=== PATIENT | male | born 1925 | race Caucasian/White ===

== ENCOUNTER 2017-06-02 11:30 | Inpatient (IN) | payer MEDICARE, OTHER ==
[~2017-06-02] VITALS: Ht 170.2 cm; Wt 59.0 kg
[2017-06-02 12:53] VITALS: BP 145/67; PULSE 81; TEMP 97.5; O2SAT 100
[2017-06-02 13:22] LABS: AUTOMATED NEUTROPHIL # 2.9 TH/MM3 (1.8-7.7); BASOPHIL % 0.2 % (0.0-2.0); EOSINOPHIL % 0.6 % (0.0-4.0); HEMATOCRIT 32.6 % (39.0-51.0); LYMPHOCYTE # 0.5 TH/MM3 (1.0-4.8); MEAN CELL VOLUME 86.9 FL (80.0-100.0); MEAN CORPUSCULAR HEMOGLOBIN 28.4 PG (27.0-34.0); MEAN CORPUSCULAR HGB CONC 32.6 % (32.0-36.0); NEUT % 69.2 % (16.0-70.0); RED BLOOD COUNT 3.74 MIL/MM3 (4.50-5.90); WHITE BLOOD COUNT 4.2 TH/MM3 (4.0-11.0)
[2017-06-02 13:35] LABS: HEMO FLAGS AUTO DIFF
[2017-06-02 14:13] LABS: ANION GAP 10 MEQ/L (5-15); AST (GOT) 16 U/L (15-37); BLOOD UREA NITROGEN 33 MG/DL (7-18); CHLORIDE 111 MEQ/L (98-107); GLOMERULAR FILTRATION RATE 32 ML/MIN (>89); POTASSIUM 3.9 MEQ/L (3.5-5.1); SODIUM (NA) 141 MEQ/L (136-145)
[2017-06-02 14:18] LABS: ALKALINE PHOSPHATASE 75 U/L (45-117); ALT (GPT) 15 U/L (12-78); TOTAL BILIRUBIN ADULT 0.9 MG/DL (0.2-1.0)
[2017-06-02 14:23] LABS: BANDS 11 % (0-6); EOSINOPHILS 1 % (0-4); METAMYELOCYTES 4 % (0-1); MYELOCYTES 3 % (0-0); NEUTROPHIL # MANUAL DIFF 3.7 TH/MM3 (1.8-7.7); POLYS (SEG NEUTROPHILS) 67 % (16-70); PROMYELOCYTES 2 % (0-0); WBC DIFF SAMPLE 100
[2017-06-02 14:24] LABS: KERATOCYTES 2+ (NORMAL)
[2017-06-02 14:25] LABS: OVALOCYTES 1+ (NORMAL)
[2017-06-02 14:27] LABS: PLATELET ESTIMATE SMEAR LOW (NORMAL); PLATELET MORPHOLOGY ENLARGED (NORMAL); SCAN/DIFF FINAL DIFF MANUAL
--- NOTE | 2017-06-02 15:07 | PD ---
HPI Chief Complaint: Psychiatric Symptoms Time Seen by Provider: 12:19 Travel History International Travel<30 days: No Contact w/Intl Traveler<30days: No History of Present Illness HPI The patient is 89 years old. He arrives in the Navarro Act. He has a history of senile dementia. The police went to his house because he has been too much for his to handle. He has been driving which is unsafe. He became agitated when he was forcibly removed from his house and brought to the hospital. For that reason he was Navarro acted. Here he has no medical complaints. [facility] Social History Alcohol Use: No Tobacco Use: No Substance Use: No Allergies-Medications (Allergen,Severity, Reaction): Coded Allergies: No Known Allergies (Verified Allergy, Unknown, 09/04/05) Reported Meds & Prescriptions Reported Meds & Active Scripts Active Review of Systems Except as stated in HPI: all other systems reviewed are Neg General / Constitutional: No: Fever Physical Exam Narrative GENERAL: Well-nourished well-developed 89-year-old male no acute distress SKIN: Warm and dry. HEAD: Atraumatic. Normocephalic. EYES: Pupils equal and round. No scleral icterus. No injection or drainage. ENT: No nasal bleeding or discharge. Mucous membranes pink and moist. NECK: Trachea midline. No JVD. CARDIOVASCULAR: Regular rate and rhythm. RESPIRATORY: No accessory muscle use. Clear to auscultation. Breath sounds equal bilaterally. GASTROINTESTINAL: Abdomen soft, non-tender, nondistended. Hepatic and splenic margins not palpable. MUSCULOSKELETAL: Extremities without clubbing, cyanosis, or edema. No obvious deformities. NEUROLOGICAL: Awake and alert. No obvious cranial nerve deficits. Motor grossly within normal limits. Five out of 5 muscle strength in the arms and legs. Normal speech. PSYCHIATRIC: Appropriate mood and affect; insight and judgment normal. Data Data Last Documented VS Vital Signs Date Time Temp Pulse Resp B/P (MAP) Pulse Ox O2 Delivery O2 Flow Rate FiO2 06/02/17 14:29 82 18 06/02/17 12:53 97.5 145/67 (93) 100 Vital Signs Date Time Temp Pulse Resp B/P (MAP) Pulse Ox O2 Delivery O2 Flow Rate FiO2 06/02/17 14:29 82 18 06/02/17 12:53 97.5 81 145/67 (93) 100 Orders Orders Complete Blood Count With Diff (10/23/17 13:01) Comprehensive Metabolic Panel (06/02/17 13:01) Psych Screen (06/02/17 13:01) Drug Screen, Random Urine (06/02/17 13:01) Labs Laboratory Tests Test 06/02/17 13:00 06/02/17 13:30 White Blood Count 4.2 TH/MM3 Red Blood Count 3.74 MIL/MM3 Hemoglobin 10.6 GM/DL Hematocrit 32.6 % Mean Corpuscular Volume 86.9 FL Mean Corpuscular Hemoglobin 28.4 PG Mean Corpuscular Hemoglobin Concent 32.6 % Red Cell Distribution Width 16.0 % Platelet Count TH/MM3 Mean Platelet Volume 10.1 FL Neutrophils (%) (Auto) 69.2 % Lymphocytes (%) (Auto) 13.0 % Monocytes (%) (Auto) 17.0 % Eosinophils (%) (Auto) 0.6 % Basophils (%) (Auto) 0.2 % Neutrophils # (Auto) 2.9 TH/MM3 Lymphocytes # (Auto) 0.5 TH/MM3 Monocytes # (Auto) 0.7 TH/MM3 Eosinophils # (Auto) 0.0 TH/MM3 Basophils # (Auto) 0.0 TH/MM3 CBC Comment AUTO DIFF Differential Total Cells Counted 100 Neutrophils % (Manual) 67 % Band Neutrophils % 11 % Lymphocytes % 10 % Monocytes % 2 % Eosinophils % 1 % Neutrophils # (Manual) 3.7 TH/MM3 Metamyelocytes 4 % Myelocytes 3 % Promyelocytes 2 % Differential Comment FINAL DIFF MANUAL Platelet Estimate LOW Platelet Morphology Comment ENLARGED Ovalocytes 1+ Keratocytes 2+ Blood Urea Nitrogen 33 MG/DL Creatinine 1.97 MG/DL Random Glucose 114 MG/DL Total Protein 7.3 GM/DL Albumin 3.6 GM/DL Calcium Level 9.2 MG/DL Alkaline Phosphatase 75 U/L Aspartate Amino Transf (AST/SGOT) 16 U/L Alanine Aminotransferase (ALT/SGPT) 15 U/L Total Bilirubin 0.9 MG/DL Sodium Level 141 MEQ/L Potassium Level 3.9 MEQ/L Chloride Level 111 MEQ/L Carbon Dioxide Level 20.0 MEQ/L Anion Gap 10 MEQ/L Estimat Glomerular Filtration Rate 32 ML/MIN Urine Opiates Screen NEG Urine Barbiturates Screen NEG Urine Amphetamines Screen NEG Urine Benzodiazepines Screen NEG Urine Cocaine Screen NEG Urine Cannabinoids Screen NEG MDM Medical Decision Making Medical Screen Exam Complete: Yes Emergency Medical Condition: Yes Medical Record Reviewed: Yes Differential Diagnosis Altered mental status/psychosis due to infection/environmental exposure/ metabolic abnormality, polypharmacy, alcohol abuse/intoxication, illicit or prescribed drug abuse, malingering/secondary gain, non-organic psychiatric disease Narrative Course CBC & BMP Diagram 06/02/17 13:00 Total Protein 7.3, Albumin 3.6, Calcium Level 9.2, Alkaline Phosphatase 75, Aspartate Amino Transf (AST/SGOT) 16, Alanine Aminotransferase (ALT/SGPT) 15, Total Bilirubin 0.9 Patient is medically clear for evaluation by psychiatry service. d/w Dr Andrse who advises evaluation by psychiatry as he has been somewhat difficult at times at home and has been driving despite instructions otherwise. Diagnosis Primary Impression: Medical clearance for psychiatric admission Amado Lau MD Jun 02, 2017 15:07
[2017-06-02 16:25] VITALS: BP 169/72; PULSE 61; TEMP 98.1; O2SAT 100
[2017-06-02] MEDS ORDERED: MAGNESIUM HYDROXIDE SUSP 30 ML CUP PO PRN (19:30)
[2017-06-02] MEDS ORDERED: ALUMINUM/MAGNESIUM/SIMETH 30 ML CUP PO PRN (19:30)
[2017-06-02] MEDS ORDERED: ACETAMINOPHEN 325 MG TAB PO PRN (19:30)
[2017-06-02] MEDS ORDERED: LORazepam 2 MG/ML VIAL - age > 65 yrs IM PRN (19:30)
[2017-06-02] MEDS ORDERED: LORazepam 0.5 MG TAB age > 65 yrs PO PRN (19:30)
[2017-06-02 19:40] VITALS: BP 180/75; PULSE 85; RESP 16; TEMP 97.6; O2SAT 100
[2017-06-02 22:30] VITALS: BP 182/75; PULSE 67
[2017-06-02] MEDS: cloNIDine HCL 0.1 MG TAB PO PRN (22:46)
[2017-06-03 00:45] VITALS: BP 98/53; PULSE 63; RESP 17
[2017-06-03 06:29] VITALS: BP 139/64; RESP 17; TEMP 97.2; O2SAT 100
[2017-06-03 11:37] LABS: ANION GAP 7 MEQ/L (5-15); BICARBONATE 23.8 MEQ/L (21.0-32.0); BLOOD UREA NITROGEN 33 MG/DL (7-18); CHLORIDE 110 MEQ/L (98-107); GLOMERULAR FILTRATION RATE 36 ML/MIN (>89); POTASSIUM 4.5 MEQ/L (3.5-5.1); SODIUM (NA) 141 MEQ/L (136-145)
[2017-06-03 11:41] LABS: HDL CHOLESTEROL 83.7 MG/DL (40.0-60.0); LDL CHOLESTEROL 49 MG/DL (0-99)
[2017-06-03] MEDS ORDERED: ARMO30TA PO (11:48)
[2017-06-03] MEDS ORDERED: ATOR10TA15 PO (11:48)
[2017-06-03] MEDS ORDERED: METO25TA3 PO (11:48)
[2017-06-03] MEDS ORDERED: DONE10TA7 PO (11:48)
[2017-06-03] MEDS ORDERED: ISOS30TA3 PO (11:48)
[2017-06-03] MEDS ORDERED: LORA-373 PO (11:48)
[2017-06-03] MEDS ORDERED: TAMS0.4C4 PO (11:48)
[2017-06-03 11:50] LABS: FREE T4 0.87 NG/DL (0.76-1.46)
--- NOTE | 2017-06-03 13:48 | PD.CONS ---
History of Present Illness Service Medicine Consult Requested By Attending Reason for Consult Medical management Primary Care Physician Rafa Andres DO Diagnoses: (1) History of prostate cancer (2) CKD (chronic kidney disease) (3) Alzheimer disease (4) HLD (hyperlipidemia) (5) Hypothyroidism (6) HTN (hypertension) History of Present Illness The patient is 89 years old. He arrives at [facility] as a Navarro Act. He has a history of senile dementia. The police went to his house because he has been too much for his to handle. He has been driving which is unsafe. He became agitated when he was forcibly removed from his house and brought to the hospital. For that reason he was Navarro acted. He has a past medical history of hypothyroidism, HTN, HLD, pacemaker, CKD, AFIB, prostate cancer, and CVA. Review of Systems Cardiovascular: DENIES: Dyspnea on Exertion Except as stated in HPI: all other systems reviewed are Neg Past Family Social History Allergies: Coded Allergies: No Known Allergies (Verified , 09/04/05) Past Medical History Hypothyroidism HTN HLD AFIB CKD HX of CVA HX of prostate cancer Past Surgical History pacemaker Active Ordered Medications Current Medications Medications (Trade) Dose Ordered Sig/Brendan Route Start Time Stop Time Status Last Admin (Ativan) 0.5 mg Q12H PRN PO 06/02/17 19:30 (Ativan Inj) 0.5 mg Q12H PRN IM 06/02/17 19:30 (Tylenol) 650 mg Q4H PRN PO 06/02/17 19:30 (Milk Of Magnesia Liq) 30 ml DAILY PRN PO 06/02/17 19:30 (Mag-Al Plus Susp Liq) 30 ml Q6H PRN PO 06/02/17 19:30 (Catapres) 0.1 mg Q4H PRN PO 06/02/17 22:45 06/02/17 22:46 Family History unable to obtain Social History Social History Alcohol Use: No Tobacco Use: No Substance Use: No Physical Exam Vital Signs Vital Signs Date Time Temp Pulse Resp B/P (MAP) Pulse Ox O2 Delivery O2 Flow Rate FiO2 06/03/17 06:29 97.2 17 139/64 (89) 100 06/03/17 00:45 63 17 98/53 (68) 06/02/17 22:30 67 182/75 (110) 06/02/17 19:49 06/02/17 19:40 97.6 85 16 180/75 (110) 100 06/02/17 16:25 98.1 61 169/72 (104) 100 06/02/17 14:29 82 18 Physical Exam GENERAL: Well-nourished well-developed in no acute distress SKIN: Warm and dry. HEAD: Atraumatic. Normocephalic. EYES: Pupils equal and round. No scleral icterus. No injection or drainage. ENT: No nasal bleeding or discharge. Mucous membranes pink and moist. NECK: Trachea midline. No JVD. CARDIOVASCULAR: Regular rate and rhythm. RESPIRATORY: No accessory muscle use. Clear to auscultation. Breath sounds equal bilaterally. GASTROINTESTINAL: Abdomen soft, non-tender, nondistended. Hepatic and splenic margins not palpable. MUSCULOSKELETAL: Extremities without clubbing, cyanosis, or edema. No obvious deformities. NEUROLOGICAL: Awake and alert. No obvious cranial nerve deficits. Motor grossly within normal limits. Five out of 5 muscle strength in the arms and legs. Normal speech. PSYCHIATRIC: Appropriate mood and affect; insight and judgment normal. Laboratory Laboratory Tests Test 06/03/17 10:05 Blood Urea Nitrogen 33 Creatinine 1.77 Random Glucose 68 Calcium Level 9.1 Sodium Level 141 Potassium Level 4.5 Chloride Level 110 Carbon Dioxide Level 23.8 Anion Gap 7 Estimat Glomerular Filtration Rate 36 Triglycerides Level 63 Cholesterol Level 145 LDL Cholesterol 49 HDL Cholesterol 83.7 Cholesterol/HDL Ratio 1.73 25-Hydroxy Vitamin D Total 23.2 Free Thyroxine 0.87 Thyroid Stimulating Hormone 3rd Gen 0.153 Result Diagram: 06/02/17 1300 06/03/17 1005 Assessment and Plan Problem List: (1) Hypothyroidism ICD Codes: E03.9 - Hypothyroidism, unspecified (2) HTN (hypertension) ICD Codes: I10 - Essential (primary) hypertension (3) HLD (hyperlipidemia) ICD Codes: E78.5 - Hyperlipidemia, unspecified (4) CKD (chronic kidney disease) ICD Codes: N18.9 - Chronic kidney disease, unspecified Assessment and Plan 06/03/17 Dementia: Navarro acted. Psych consulted and managing. Patient is friendly and cooperative with visit. Alert but not oriented. HLD; Continue statin CKD: Patient with stage CKD. Creat improved at 1.77 today Hypothyroidism: [place] thyroid continued. No palpitations noted Vitamin D deficiency replacement added I and the AIR MARSHAL have both examined this patient and reviewed this note and I agree with these findings and plan of care. Parris De Leon. AIR MARSHAL Jun 03, 2017 13:48
[2017-06-03] MEDS ORDERED: ACETAMINOPHEN 325 MG TAB PO PRN (14:45)
[2017-06-03] MEDS ORDERED: hydrOXYzine HCL 50 MG TAB PO PRN (14:45)
--- NOTE | 2017-06-03 14:57 | HHI.HP ---
Provisional Diagnosis Admission Date Jun 02, 2017 at 18:31 [place] I. Dementia with behavioral disturbance FiO2.81 other Alzheimer's disease g30.8 Certification of Person's Competence To Provide Express and Informed Consent I have personally examined Bienvenido Tilley , a person being served at [facility] on, Jun 03, 2017 14:36. Express and informed consent means consent voluntarily given in writing, by a competent person, after sufficient explanation and disclosure of the subject matter involved to enable the person to make a knowing and willful decision without any element of force, fraud, deceit, duress, or other form of constraint or coercion. This person is 18 years of age or older, is not now known to be incompetent to consent to treatment with a guardian advocate, and does not have a health care surrogate or proxy currently making medical treatment decisions. I have found this person to be one of the following: [] Competent to provide express and informed consent, as defined above, for voluntary admission to this facility and is competent to provide express and informed consent for treatment. He/she has the consistent capacity to make well reasoned, willful, and knowing decisions concerning his or her medical or mental health treatment. The person fully and consistently understands the purpose of the admission for examination/placement and is fully capable of personally exercising all rights assured under [place]xxxx] Incompetent to provide express and informed consent to voluntary admission, and this is incompetent to provide express and informed consent to treatment. The person must be transferred to involuntary status and a petition for a guardian advocate filed with the Circuit Court. [] Refusing to provide express and informed consent to voluntary admission but is competent to provide express and informed consent for treatment. The person must be discharged or transferred to involuntary status. Form shall be completed within 24 hours of a person's arrival at the receiving facility and filed in the clinical record of each person: 1. Admitted on a voluntary basis 2. Permitted to provide express and informed consent to his/her own treatment 3. Allowed to transfer from involuntary to voluntary status 4. Prior to permitting a person to consent to his or her own treatment after having been previously found incompetent to consent to treatment. History of Present Illness Capacity: Lacks Capacity Psych Chief Complaint: patient with dementia with increased aggressive behavior at home HPI Patient is an 89-year-old white male comes her under Navarro act by the [place] [employer] dated 06/02/17 at 10:45 AM that document reviewed. It states that Jarek was involved in a verbal dispute with his over him not being able to drive his Jarek had been diagnosed by Dr. Andres to be in the early stages of dementia. Jarek was recently taken out of a skilled nursing recently by his and she is not in physical condition to take care of Jarek. While speaking to Jarek about possibly returning to the skilled nursing Jarek stated several times that he would kill himself. Jarek cannot tell me the day of the week or the date and did not know with the presence of the [place] was without referring to today's newspaper. While being placed into the patrol vehicle Jarek stated that also Ronnell and his would desire it. Erick continue to state that his would desire a when he gets out. Patient seen screened in the ED urine toxicology negative. Patient medically cleared in the ED. At the present time patient sitting quietly in his room on [address] [facility]. Patient is diffusely oriented but confused to date and year white male appears somewhat younger than his stated age. Is calm and cooperative. He denies prior psychiatric contact hospitalizations her psychotropic medications. He states this is his second they've been 12+ years he states she is significantly younger than him. He does have children by her first . He denies any mental health history in the family denies any history of abuse. He states was raised on a farm and has only a sixth grade education. He states his occasionally have a glass of wine when going out to dinner. He denies any aggressive behavior towards his family. At the present time patient does meet criteria for involuntary psychiatric hospitalization on the Navarro act. I'll do first opinion request second opinion. I feel he does not have capacity thus I'll ask for healthcare surrogate and guardian advocate. Counselor has call patient's will meet with her tomorrow. Further information. Review of Systems Constitutional: DENIES: Diaphoretic episodes, Fatigue, Fever, Weight gain, Weight loss, Chills, Dizziness, Change in appetite, Night Sweats Endocrine: DENIES: Heat/cold intolerance, Polydipsia, Polyuria, Polyphagia Eyes: DENIES: Blurred vision, Diplopia, Eye inflammation, Eye pain, Vision loss , Photosensitivity, Double Vision Ears, nose, mouth, throat: DENIES: Tinnitus, Hearing loss, Vertigo, Nasal discharge, Oral lesions, Throat pain, Hoarseness, Ear Pain, Running Nose, Epistaxis, Sinus Pain, Toothache, Odynophagia Respiratory: DENIES: Apneas, Cough, Snoring, Wheezing, Hemoptysis, Sputum production, Shortness of breath Cardiovascular: DENIES: Chest pain, Palpitations, Syncope, Dyspnea on Exertion , PND, Lower Extremity Edema, Orthopnea, Claudication Gastrointestinal: DENIES: Abdominal pain, Black stools, Bloody stools, Constipation, Diarrhea, Nausea, Vomiting, Difficulty Swallowing, Anorexia Genitourinary: DENIES: Sexual dysfunction, Urinary frequency, Urinary incontinence, Urgency, Hematuria, Dysuria, Nocturia, Penile Discharge, Testicular Pain, Testicular Swelling Musculoskeletal: DENIES: Joint pain, Muscle aches, Stiffness, Joint Swelling, Back pain, Neck pain Integumentary: DENIES: Abnormal pigmentation, Nail changes, Pruritus, Rash Hematologic/lymphatic: DENIES: Bruising, Lymphadenopathy Immunologic/allergic: DENIES: Eczema, Urticaria Neurologic: DENIES: Abnormal gait, Headache, Localized weakness, Paresthesias, Seizures, Speech Problems, Tremor, Poor Balance Psychiatric: COMPLAINS OF: Agitation Past Psych History Psychological trauma history patient denies history of physical or sexual abuse Violence risk - others (6 mos) Patient threatening towards family Violence risk - self (6 mos) Patient make vague threats of wanting to hurt himself to place Substance Abuse History Drugs/Alcohol past 12 months Patient states she has 5 foramina occasional glass of wine denying hard liquor use Past Family Social History Coded Allergies: No Known Allergies (Verified , 09/04/05) Reported Medications Thyroid (Hoskins Thyroid) 30 Mg Tab, 30 MG PO DAILY for Thyroid Supplement, #30 TAB 0 Refills 06/03/17 Tamsulosin (Tamsulosin) 0.4 Mg Cap, 0.4 MG PO HS for Manage Prostate Problems, # 30 CAP 0 Refills 06/03/17 Isosorbide Mononitrate ER (Isosorbide Mononitrate ER) 30 Mg Bill, 30 MG PO DAILY for Prevent Chest Pain, #30 TAB 0 Refills 06/03/17 Atorvastatin (Atorvastatin) 10 Mg Tab, 10 MG PO HS for Cholesterol Management, # 30 TAB 0 Refills 06/03/17 Metoprolol Tartrate (Metoprolol Tartrate) 25 Mg Tab, 25 MG PO BID, #60 TAB 0 Refills 06/03/17 Lorazepam (Lorazepam) 0.5 Mg Tab, PO Q8H, TAB 0 Refills 06/03/17 Donepezil (Donepezil) 10 Mg Tab, 10 MG PO HS for Dementia, #30 TAB 0 Refills 06/03/17 Current Medications Medications (Trade) Dose Ordered Sig/Brendan Route Start Time Stop Time Status Last Admin (Ativan) 0.5 mg Q12H PRN PO 06/02/17 19:30 (Ativan Inj) 0.5 mg Q12H PRN IM 06/02/17 19:30 (Tylenol) 650 mg Q4H PRN PO 06/02/17 19:30 (Milk Of Magnesia Liq) 30 ml DAILY PRN PO 06/02/17 19:30 (Mag-Al Plus Susp Liq) 30 ml Q6H PRN PO 06/02/17 19:30 (Catapres) 0.1 mg Q4H PRN PO 06/02/17 22:45 06/02/17 22:46 (Lipitor) 10 mg HS PO 06/03/17 21:00 (Imdur) 30 mg DAILY PO 06/04/17 09:00 (Lopressor) 25 mg BID PO 06/03/17 21:00 (Flomax) 0.4 mg HS PO 06/03/17 21:00 (Hoskins Thyroid) 30 mg DAILY PO 06/04/17 09:00 (Aricept) 10 mg HS PO 06/03/17 21:00 (Vitamin D3) 5,000 units DAILY PO 06/04/17 09:00 UNV Family Psych History Patient denies mental health addictions and family, though his family survivor Social History Patient lives with his second Patient's Strengths (min. 2) Patient verbal label access healthcare Physical Exam Patient seen screened in the ED exam reviewed and agreed with patient sitting quietly in his room he is in no acute distress, he is in no respiratory distress. No complaints of abdominal pain. Patient moving all 4 extremities without difficulty Vital Signs Vital Signs Date Time Temp Pulse Resp B/P (MAP) Pulse Ox O2 Delivery O2 Flow Rate FiO2 06/03/17 06:29 97.2 17 139/64 (89) 100 06/03/17 00:45 63 I/O 06/03/17 06/03/17 06/04/17 08:00 16:00 00:00 Intake Total 360 ml 120 ml Balance 360 ml 120 ml Lab Results Test 06/03/17 10:05 Blood Urea Nitrogen 33 MG/DL Creatinine 1.77 MG/DL Random Glucose 68 MG/DL Calcium Level 9.1 MG/DL Sodium Level 141 MEQ/L Potassium Level 4.5 MEQ/L Chloride Level 110 MEQ/L Carbon Dioxide Level 23.8 MEQ/L Anion Gap 7 MEQ/L Estimat Glomerular Filtration Rate 36 ML/MIN Triglycerides Level 63 MG/DL Cholesterol Level 145 MG/DL LDL Cholesterol 49 MG/DL HDL Cholesterol 83.7 MG/DL Cholesterol/HDL Ratio 1.73 RATIO 25-Hydroxy Vitamin D Total 23.2 ng/ML Free Thyroxine 0.87 NG/DL Thyroid Stimulating Hormone 3rd Gen 0.153 uIU/ML Mental Status Examination Appearance: Appropriate Consciousness: Alert Orientation: Person, Place (somewhat vague), Date/Time (somewhat vague) Motor Activity: Normal gait Speech: Unremarkable Language: Adequate Fund of Knowledge: Adequate Attention and Concentration: Other (fair) Memory: Impaired Mood: Appropriate Affect: Other (good range and intensity) Thought Process & Associations: Loose associations Thought Content: Appropriate Hallucination Type: None Delusion Type: None Suicidal Ideation: Yes (made vague statements to place) Suicidal Plan: No Suicidal Intention: No Homicidal Ideation: No Homicidal Plan: No Homicidal Intention: No Insight: Poor Judgment: Poor Assessment & Plan Problem List: (1) OTHER ALZHEIMER'S DISEASE ICD Codes: G30.8 - OTHER ALZHEIMER'S DISEASE (2) DEMENTIA IN OTH DISEASES CLASSD ELSWHR W BEHAVIORAL DISTURB ICD Codes: F02.81 - DEMENTIA IN OTH DISEASES CLASSD ELSWHR W BEHAVIORAL DISTURB Assessment & Plan Estimated LOS: 5-7 days patient meets criteria for further involuntary psychiatric hospitalization under the Navarro act I will do first opinion request second opinion. I feel he does not have capacity thus I'll ask for healthcare surrogate and guardian advocate. We will meet with patient's tomorrow morning. We'll continue his scheduled medications per the med reconciliation will also have a hospitalist consult with us Discharge Planning It appears patient was staying prior at a skilled nursing we need to discuss with possibility of him returning home versus skilled nursing. This placement. Contingent upon his attitude towards driving privileges Request HC Surrog/Guard Advoc?: Yes Bebo Sharp MD Jun 03, 2017 14:57
[2017-06-03 16:49] LABS: HEMOGLOBIN A1b 1.8 %; HEMOGLOBIN Ao 84.4 %; HEMOGLOBIN LA1C 2.2 %; HEMOGLOBIN P3 5.8 %
[2017-06-03 18:09] VITALS: BP 152/71; PULSE 71; RESP 16; TEMP 98; O2SAT 100
[2017-06-03 20:50] VITALS: BP 155/69; PULSE 60; RESP 17; O2SAT 99
[2017-06-03] MEDS: ATORVASTATIN 10 MG TAB PO SCH (21:22)
[2017-06-03] MEDS: METOPROLOL TARTRATE 25 MG TAB PO SCH (21:22)
[2017-06-03] MEDS: DONEPEZIL HCL 5 MG TAB PO SCH (21:22)
[2017-06-03] MEDS: TAMSULOSIN HCL 0.4 MG CAP PO SCH (21:22)
[2017-06-04 06:22] VITALS: BP 174/77; PULSE 70; RESP 18; TEMP 98.3; O2SAT 96
[2017-06-04] MEDS: CHOLECALCIFEROL (VIT D3) 5000 UNIT CAP PO SCH (08:42)
[2017-06-04] MEDS: ISOSORBIDE MONONITRATE 30 MG TAB PO SCH (08:42)
[2017-06-04] MEDS: METOPROLOL TARTRATE 25 MG TAB PO SCH ×2 (08:43→22:00)
[2017-06-04] MEDS: THYROID 30 MG TAB PO SCH (08:43)
--- NOTE | 2017-06-04 12:08 | HHI.PYPN ---
Subjective Chief Complaint: patient with dementia with increased aggressive behavior at home Remarks Meds with patient's and counselor Ita, discussed patient's mental health history, diagnosis, behaviors that led to this hospitalization, and treatment recommendations. also stated that patient should be a DNR, it appears was placed in [place] [facility] [place] for a period of time because" week" but only for a few weeks and then was returned home about 2-3 weeks ago. Is at that time they became more angry aggressive and belligerent when being denied driving privileges by his . His feels that he needs a placement once discharged from here. Patient showed no significant behavioral problems along the unit. We'll continue to observe. Patient has been seen on the unit he is calm pleasantly confused. No behavioral problems Review of Systems Except as stated in HPI: all other systems reviewed are Neg Mental Status Examination Appearance: Appropriate Consciousness: Alert Orientation: Person, Place (somewhat vague), Date/Time (somewhat vague) Motor Activity: Normal gait Speech: Unremarkable Language: Adequate Fund of Knowledge: Adequate Attention and Concentration: Other (fair) Memory: Impaired Mood: Appropriate Affect: Other (good range and intensity) Thought Process & Associations: Loose associations Thought Content: Appropriate Hallucination Type: None Delusion Type: None Suicidal Ideation: Yes (made vague statements to place) Suicidal Plan: No Suicidal Intention: No Homicidal Ideation: No Homicidal Plan: No Homicidal Intention: No Insight: Poor Judgment: Poor Results Vitals/IOs Vital Signs Date Time Temp Pulse Resp B/P (MAP) Pulse Ox O2 Delivery O2 Flow Rate FiO2 06/04/17 06:22 98.3 70 18 174/77 (109) 96 Intake and Output 06/04/17 06/04/17 06/05/17 08:00 16:00 00:00 Intake Total 620 ml Balance 620 ml Assessment & Plan Problem List: (1) OTHER ALZHEIMER'S DISEASE ICD Codes: G30.8 - OTHER ALZHEIMER'S DISEASE (2) DEMENTIA IN OTH DISEASES CLASSD ELSWHR W BEHAVIORAL DISTURB ICD Codes: F02.81 - DEMENTIA IN OTH DISEASES CLASSD ELSWHR W BEHAVIORAL DISTURB Assessment & Plan Estimated LOS: days mental patient's counseled her and discussed her patient's diagnosis treatment prognosis placement issues. Patient compliant medications. For now continue treatment Justification for Cont. Inpt. At this time patient will decompensate the placed in a lower level of care Discharge Planning Family appears to agreed to placement for this gentleman as opposed returning home. Request HC Surrog/Guard Advoc?: Yes Bebo Sharp MD Jun 04, 2017 12:08
--- NOTE | 2017-06-04 15:25 | PD.PSY.CON ---
Provisional Diagnosis Admission Date Jun 02, 2017 at 18:31 [place]. Dementia with behavioral disturbance FiO2.81 other Alzheimer's disease g30.8 History of Present Illness Service Psychiatry Consult Requested By Dr. Sharp Reason for Consult Second opinion Primary Care Physician Rafa Andres, DO HPI Patient is an 89-year-old white male comes her under [place] act by the [place] [employer] dated 06/02/17 at 10:45 AM that document reviewed. It states that Jarek was involved in a verbal dispute with his over him not being able to drive his Jarek had been diagnosed by Dr. Andres to be in the early stages of dementia. Jarek was recently taken out of a usp recently by his and she is not in physical condition to take care of Jarek. While speaking to Jarek about possibly returning to the usp Jarek stated several times that he would kill himself. Jarek cannot tell me the day of the week or the date and did not know with the presence of the [employer] [place] was without referring to today's newspaper. While being placed into the patrol vehicle Jarek stated that also Ronnell and his would desire it. Erick continue to state that his would desire a when he gets out. Patient seen screened in the ED urine toxicology negative. Patient medically cleared in the ED. At the present time patient sitting quietly in his room on [address] [facility] Patient is diffusely oriented but confused to date and year white male appears somewhat younger than his stated age. Is calm and cooperative. He denies prior psychiatric contact hospitalizations her psychotropic medications. He states this is his second they've been 12+ years he states she is significantly younger than him. He does have children by her first . He denies any mental health history in the family denies any history of abuse. He states was raised on a farm and has only a sixth grade education. He states his occasionally have a glass of wine when going out to dinner. He denies any aggressive behavior towards his family. Patient seen for evaluation of second opinion. She is calm, cooperative and pleasant. Patient says that he doesn't really know the reason he is here. Patient requests to be discharged back home. He says that his is is going to come to pick him up. Patient does not seem to be aware of the reason of his hospitalization. Patient reports good mood, denies depression, he knows that he is in the hospital, but he says that we are in September 1987. He denies previous psychiatric history, he denies previous psychiatric hospitalizations, he does become disorganized, but no agitation or aggressive behavior reported or noted. Past Family Social History Coded Allergies: No Known Allergies (Verified , 09/04/05) Reported Medications Thyroid ([place] Thyroid) 30 Mg Tab, 30 MG PO DAILY for Thyroid Supplement, #30 TAB 0 Refills 06/03/17 Tamsulosin (Tamsulosin) 0.4 Mg Cap, 0.4 MG PO HS for Manage Prostate Problems, # 30 CAP 0 Refills 06/03/17 Isosorbide Mononitrate ER (Isosorbide Mononitrate ER) 30 Mg Bill, 30 MG PO DAILY for Prevent Chest Pain, #30 TAB 0 Refills 06/03/17 Atorvastatin (Atorvastatin) 10 Mg Tab, 10 MG PO HS for Cholesterol Management, # 30 TAB 0 Refills 06/03/17 Metoprolol Tartrate (Metoprolol Tartrate) 25 Mg Tab, 25 MG PO BID, #60 TAB 0 Refills 06/03/17 Lorazepam (Lorazepam) 0.5 Mg Tab, PO Q8H, TAB 0 Refills 06/03/17 Donepezil (Donepezil) 10 Mg Tab, 10 MG PO HS for Dementia, #30 TAB 0 Refills 06/03/17 Current Medications Medications (Trade) Dose Ordered Sig/Brendan Route Start Time Stop Time Status Last Admin (Ativan) 0.5 mg Q12H PRN PO 06/02/17 19:30 (Ativan Inj) 0.5 mg Q12H PRN IM 06/02/17 19:30 06/03/17 17:55 (Milk Of Magnesia Liq) 30 ml DAILY PRN PO 06/02/17 19:30 (Mag-Al Plus Susp Liq) 30 ml Q6H PRN PO 06/02/17 19:30 (Catapres) 0.1 mg Q4H PRN PO 06/02/17 22:45 06/02/17 22:46 (Lipitor) 10 mg HS PO 06/03/17 21:00 06/03/17 21:22 (Imdur) 30 mg DAILY PO 06/04/17 09:00 06/04/17 08:42 (Lopressor) 25 mg BID PO 06/03/17 21:00 06/04/17 08:43 (Flomax) 0.4 mg HS PO 06/03/17 21:00 06/03/17 21:22 ([place] Thyroid) 30 mg DAILY PO 06/04/17 09:00 06/04/17 08:43 (Aricept) 10 mg HS PO 06/03/17 21:00 06/03/17 21:22 (Vitamin D3) 5,000 units DAILY PO 06/04/17 09:00 06/04/17 08:42 (Tylenol) 650 mg Q4H PRN PO 06/03/17 14:45 (Atarax) 50 mg Q6H PRN PO 06/03/17 14:45 06/03/17 21:22 Patient's Strengths (min. 2) Patient verbal label access healthcare Physical Exam Vital Signs Vital Signs Date Time Temp Pulse Resp B/P (MAP) Pulse Ox O2 Delivery O2 Flow Rate FiO2 06/04/17 06:22 98.3 70 18 174/77 (109) 96 I/O 06/04/17 06/04/17 06/05/17 08:00 16:00 00:00 Intake Total 620 ml 240 ml Balance 620 ml 240 ml Mental Status Examination Appearance: Appropriate Consciousness: Alert Orientation: Person, Place (somewhat vague), Date/Time (somewhat vague) Motor Activity: Normal gait Speech: Unremarkable Language: Adequate Fund of Knowledge: Adequate Attention and Concentration: Other (fair) Memory: Impaired Mood: Appropriate Affect: Other (good range and intensity) Thought Process & Associations: Loose associations Thought Content: Appropriate Hallucination Type: None Delusion Type: None Suicidal Ideation: Yes (made vague statements to place) Suicidal Plan: No Suicidal Intention: No Homicidal Ideation: No Homicidal Plan: No Homicidal Intention: No Insight: Poor Judgment: Poor Assessment & Plan Problem List: (1) OTHER ALZHEIMER'S DISEASE ICD Codes: G30.8 - OTHER ALZHEIMER'S DISEASE (2) DEMENTIA IN OTH DISEASES CLASSD ELSWHR W BEHAVIORAL DISTURB ICD Codes: F02.81 - DEMENTIA IN OTH DISEASES CLASSD ELSWHR W BEHAVIORAL DISTURB Assessment & Plan: I have seen and examined this patient, reviewed the documentation, discussed with nurses, and I agree and concur with Dr. Sharp' s assessment and plan. Assessment & Plan Estimated LOS: days Request HC Surrog/Guard Advoc?: Yes Adriel Rodriguez MD Jun 04, 2017 15:25
[2017-06-04 17:43] VITALS: BP 120/56; PULSE 81; RESP 17; TEMP 97.7; O2SAT 99
[2017-06-04] MEDS: DONEPEZIL HCL 5 MG TAB PO SCH (22:00)
[2017-06-04] MEDS: TAMSULOSIN HCL 0.4 MG CAP PO SCH (22:00)
[2017-06-04] MEDS: ATORVASTATIN 10 MG TAB PO SCH (22:01)
[2017-06-05 05:32] VITALS: BP 175/75; PULSE 60; RESP 15; TEMP 98; O2SAT 97
[2017-06-05] MEDS: cloNIDine HCL 0.1 MG TAB PO PRN (06:24)
[2017-06-05] MEDS: THYROID 30 MG TAB PO SCH (08:26)
[2017-06-05] MEDS: METOPROLOL TARTRATE 25 MG TAB PO SCH ×2 (08:26→20:46)
[2017-06-05] MEDS: ISOSORBIDE MONONITRATE 30 MG TAB PO SCH (08:26)
[2017-06-05] MEDS: CHOLECALCIFEROL (VIT D3) 5000 UNIT CAP PO SCH (08:26)
[2017-06-05 10:05] VITALS: BP 159/72
--- NOTE | 2017-06-05 12:00 | HHI.PYPN ---
Subjective Chief Complaint: patient with dementia with increased aggressive behavior at home Remarks Patient seen in [place] with nurse Emily, patient alert pleasantly confused with us pleasant with us. Though showing no insight into his behaviors hours problems. It appears his was here earlier asked him to sign checks so she could pay some bills. He refused. He told us he takes care of all the financial issues in the family the right some of the checks. When asked about the issues related to his driving he became tangential talking about his driving record no accidents or citations. He denies the aggressiveness that also occurred with them. At this time I feel the addition of a medication to help control some of the underlying anger and irritability might be appropriate. Will request permission start patient on Seroquel 25 mg 9 AM and 4 PM Review of Systems Except as stated in HPI: all other systems reviewed are Neg Mental Status Examination Appearance: Appropriate Consciousness: Alert Orientation: Person, Place (somewhat vague), Date/Time (somewhat vague) Motor Activity: Normal gait Speech: Unremarkable Language: Adequate Fund of Knowledge: Adequate Attention and Concentration: Other (fair) Memory: Impaired Mood: Appropriate Affect: Other (good range and intensity) Thought Process & Associations: Loose associations Thought Content: Appropriate Hallucination Type: None Delusion Type: None Suicidal Ideation: Yes (made vague statements to place) Suicidal Plan: No Suicidal Intention: No Homicidal Ideation: No Homicidal Plan: No Homicidal Intention: No Insight: Poor Judgment: Poor Results Vitals/IOs Vital Signs Date Time Temp Pulse Resp B/P (MAP) Pulse Ox O2 Delivery O2 Flow Rate FiO2 06/05/17 10:05 159/72 (101) 06/05/17 05:32 98.0 60 15 97 Intake and Output 06/05/17 06/05/17 06/06/17 08:00 16:00 00:00 Intake Total 0 ml Balance 0 ml Assessment & Plan Problem List: (1) OTHER ALZHEIMER'S DISEASE ICD Codes: G30.8 - OTHER ALZHEIMER'S DISEASE (2) DEMENTIA IN OTH DISEASES CLASSD ELSWHR W BEHAVIORAL DISTURB ICD Codes: F02.81 - DEMENTIA IN OTH DISEASES CLASSD ELSWHR W BEHAVIORAL DISTURB Assessment & Plan Estimated LOS: days patient continues demented somewhat irritable with no insight. She medication adjustments above Justification for Cont. Inpt. At this time patient with decompensated placed in a lower level of care Discharge Planning Need for the discussion with about placement issues perhaps returning to [facility] as opposed returning home Request HC Surrog/Guard Advoc?: Yes Bebo Sharp MD Jun 05, 2017 12:00
--- NOTE | 2017-06-05 13:40 | PD.WCN.NOT ---
Wound Consult Description: Consult for wound management of "bilateral arms and behind the right knee, patient has skin tears in both arms and behind right knee" Communicated with: SPARKLE Diaz Recommendation: Apply single layer Xeroform and dry cover daily to all skin tears. Additional Information: Patient seen in 2502 for skin tears noted to right dorsal hand, right forearm, left ring finger. All wounds were cleansed with NS and gauze. Single layer Xeroform was applied over wound beds on upper extremities and covered with 4x4 and secured with rolled gauze and tape. Skin tear on right posterior lower extremity was cleansed with NS and gauze and left open to air. SPARKLE Diaz was notified that rolled gauze was not available. Supplies of Xeroform, 4x4 gauze, and tape left at nurses station for SPARKLE Diaz to dress right leg wound once rolled gauze was obtained. Amisha Watkins [facility] Jun 05, 2017 13:40
--- NOTE | 2017-06-05 13:49 | HHI.PR ---
Subjective Remarks Patient seen in common room. Alert not oriented. Objective Vital Signs Date Time Temp Pulse Resp B/P (MAP) Pulse Ox O2 Delivery O2 Flow Rate FiO2 06/05/17 10:05 159/72 (101) 06/05/17 05:32 98.0 60 15 175/75 (108) 97 06/04/17 17:43 97.7 81 17 120/56 (77) 99 I/O 06/04/17 06/04/17 06/04/17 06/05/17 06/05/17 06/05/17 07:00 15:00 23:00 07:00 15:00 23:00 Intake Total 380 ml 480 ml 1200 ml 0 ml 600 ml Balance 380 ml 480 ml 1200 ml 0 ml 600 ml Intake Oral 380 ml 480 ml 1200 ml 0 ml 600 ml # Voids 2 5 1 Result Diagram: 06/02/17 1300 06/03/17 1005 Objective Remarks GENERAL: alert not oriented SKIN: Warm and dry. HEAD: Normocephalic. EYES: No scleral icterus. No injection or drainage. NECK: Supple, trachea midline. No JVD or lymphadenopathy. CARDIOVASCULAR: Regular rate and rhythm without murmurs, gallops, or rubs. RESPIRATORY: Breath sounds equal bilaterally. No accessory muscle use. GASTROINTESTINAL: Abdomen soft, non-tender, nondistended. MUSCULOSKELETAL: No cyanosis, or edema. BACK: Nontender without obvious deformity. No CVA tenderness. Medications and IVs Current Medications Medications (Trade) Dose Ordered Sig/Brendan Route Start Time Stop Time Status Last Admin (Ativan) 0.5 mg Q12H PRN PO 06/02/17 19:30 (Ativan Inj) 0.5 mg Q12H PRN IM 06/02/17 19:30 06/03/17 17:55 (Milk Of Magnesia Liq) 30 ml DAILY PRN PO 06/02/17 19:30 (Mag-Al Plus Susp Liq) 30 ml Q6H PRN PO 06/02/17 19:30 (Catapres) 0.1 mg Q4H PRN PO 06/02/17 22:45 06/05/17 06:24 (Lipitor) 10 mg HS PO 06/03/17 21:00 06/04/17 22:01 (Imdur) 30 mg DAILY PO 06/04/17 09:00 06/05/17 08:26 (Lopressor) 25 mg BID PO 06/03/17 21:00 06/05/17 08:26 (Flomax) 0.4 mg HS PO 06/03/17 21:00 06/04/17 22:00 ([place] Thyroid) 30 mg DAILY PO 06/04/17 09:00 06/05/17 08:26 (Aricept) 10 mg HS PO 06/03/17 21:00 06/04/17 22:00 (Vitamin D3) 5,000 units DAILY PO 06/04/17 09:00 06/05/17 08:26 (Tylenol) 650 mg Q4H PRN PO 06/03/17 14:45 (Atarax) 50 mg Q6H PRN PO 06/03/17 14:45 06/03/17 21:22 (SEROquel) 25 mg BID@0900,1600 PO 06/05/17 16:00 Assessment and Plan Problem List: (1) Hypothyroidism ICD Codes: E03.9 - Hypothyroidism, unspecified (2) HTN (hypertension) ICD Codes: I10 - Essential (primary) hypertension (3) HLD (hyperlipidemia) ICD Codes: E78.5 - Hyperlipidemia, unspecified (4) CKD (chronic kidney disease) ICD Codes: N18.9 - Chronic kidney disease, unspecified Assessment and Plan 06/03/17 Dementia: [place] acted. Psych consulted and managing. Patient is friendly and cooperative with visit. Alert but not oriented. HLD; Continue statin CKD: Patient with stage CKD. Creat improved at 1.77 today Hypothyroidism: [place] thyroid continued. No palpitations noted Vitamin D deficiency replacement added 06/05/17' Dementia: Psych managing. Seroquel added. cooperative with visit HTN: On isosorbide and metoprolol. Blood pressure elevated will increase isosorbide Wounds: Multiple wounds noted on upper extemity. dressing on. wound care consulted. UA ordered. I and the FURNITURE DESIGNER have both examined this patient and reviewed this note and I agree with these findings and plan of care. Parris De Leon. FURNITURE DESIGNER Jun 05, 2017 13:49
[2017-06-05] MEDS: QUEtiapine FUMARATE 25 MG TAB PO SCH (16:00)
[2017-06-05 18:17] VITALS: BP 112/57; PULSE 60; RESP 16; TEMP 98.1; O2SAT 99
[2017-06-05] MEDS: DONEPEZIL HCL 5 MG TAB PO SCH (20:46)
[2017-06-05] MEDS: ATORVASTATIN 10 MG TAB PO SCH (20:46)
[2017-06-05] MEDS: TAMSULOSIN HCL 0.4 MG CAP PO SCH (20:46)
[2017-06-06 06:17] VITALS: BP 188/80; PULSE 60; RESP 15; TEMP 98; O2SAT 100
[2017-06-06 06:52] VITALS: BP 149/70; PULSE 73
[2017-06-06] MEDS ORDERED: ISOSORBIDE MONONITRATE 60 MG TAB PO SCH (07:00)
[2017-06-06] MEDS: CHOLECALCIFEROL (VIT D3) 5000 UNIT CAP PO SCH (08:22)
[2017-06-06] MEDS: THYROID 30 MG TAB PO SCH (08:22)
[2017-06-06] MEDS: METOPROLOL TARTRATE 25 MG TAB PO SCH (08:22)
[2017-06-06] MEDS: QUEtiapine FUMARATE 25 MG TAB PO SCH (08:25)
--- NOTE | 2017-06-06 12:09 | HHI.DS ---
Psychiatry Discharge Summary Inpatient Psychiatric care?: Yes Advance Directive: Yes Mental Health AdvanceDirective: No Health Care Proxy: Yes Admission Admission Date Jun 02, 2017 at 18:31 Admission Diagnosis: (1) DEMENTIA IN OTH DISEASES CLASSD ELSWHR W BEHAVIORAL DISTURB ICD Code: F02.81 - DEMENTIA IN OTH DISEASES CLASSD ELSWHR W BEHAVIORAL DISTURB (2) OTHER ALZHEIMER'S DISEASE ICD Code: G30.8 - OTHER ALZHEIMER'S DISEASE Brief History Patient is an 89-year-old white male comes her under [place] act by the [place] [employer] dated 06/02/17 at 10:45 AM that document reviewed. It states that Jarek was involved in a verbal dispute with his over him not being able to drive his Jarek had been diagnosed by Dr. Andres to be in the early stages of dementia. Jarek was recently taken out of a skilled nursing recently by his and she is not in physical condition to take care of Jarek. While speaking to Jarek about possibly returning to the skilled nursing Jraek stated several times that he would kill himself. Jarek cannot tell me the day of the week or the date and did not know with the presence of the [place] was without referring to today's newspaper. While being placed into the patrol vehicle Jarek stated that also Ronnell and his would desire it. Erick continue to state that his would desire a when he gets out. Patient seen screened in the ED urine toxicology negative. Patient medically cleared in the ED. At the present time patient sitting quietly in his room on [address] [facility] Patient is diffusely oriented but confused to date and year white male appears somewhat younger than his stated age. Is calm and cooperative. He denies prior psychiatric contact hospitalizations her psychotropic medications. He states this is his second they've been 12+ years he states she is significantly younger than him. He does have children by her first . He denies any mental health history in the family denies any history of abuse. He states was raised on a farm and has only a sixth grade education. He states his occasionally have a glass of wine when going out to dinner. He denies any aggressive behavior towards his family. Patient seen for evaluation of second opinion. She is calm, cooperative and pleasant. Patient says that he doesn't really know the reason he is here. Patient requests to be discharged back home. He says that his is is going to come to pick him up. Patient does not seem to be aware of the reason of his hospitalization. Patient reports good mood, denies depression, he knows that he is in the hospital, but he says that we are in September 1987. He denies previous psychiatric history, he denies previous psychiatric hospitalizations, he does become disorganized, but no agitation or aggressive behavior reported or noted. Tobacco Use In Past 30 Days: No Tobacco Past 30 Days Alcohol Use: Never Hospital Course Patient was noted this morning activities room sitting in his chair slumped over not breathing. I was available did see patient. He immediately called [facility]. Patient is placed on the floor with other nurses and staff assisting patients breathing returned with his neck extension is some response with PO2 of blood pressure. However family Nurse and I agree patient needed to be transferred to telemetry unit for further care and attention observation. I did talk with the nurse practitioner for Dr. Ventura she agreed patient be discharged from psychiatry to be transferred directly to telemetry unit under Dr. Ventura service Results Blood Pressure 149 / 70 Vital Signs Date Time Temp Pulse Resp B/P (MAP) Pulse Ox O2 Delivery O2 Flow Rate FiO2 06/06/17 06:52 73 149/70 (96) 06/06/17 06:17 98.0 15 100 Laboratory Results Test 06/03/17 10:05 Cholesterol Level 145 MG/DL (120-200) HDL Cholesterol 83.7 MG/DL (40.0-60.0) Hemoglobin A1c 5.8 % (4.3-6.0) LDL Cholesterol 49 MG/DL (0-99) Triglycerides Level 63 MG/DL (42-150) Summary of Procedures None done Pending results at discharge: No Medications # of Antipsychotic meds at D/C: 1 Appropriate >1 Antipsych meds?: 1 Approp Antipsych med options 1 - Minimum of three failed multiple trials of monotherapy. 2 - Documented plan to taper to monotherapy due to previous use of multiple meds OR cross-taper in progress at D/C. 3 - Documentation of augmentation of Clozapine. 4 - Justification other than those listed in allowable values 1-3, document here : Discharge Discharge Date: Jun 06, 2017 Discharge Diagnosis: (1) DEMENTIA IN OTH DISEASES CLASSD LYUBOV [place] BEHAVIORAL DISTURB Diagnosis: Principal ICD Code: F02.81 - DEMENTIA IN OTH DISEASES CLASSD ELSWHR W BEHAVIORAL DISTURB (2) OTHER ALZHEIMER'S DISEASE Diagnosis: Principal ICD Code: G30.8 - OTHER ALZHEIMER'S DISEASE Pt Condition on Discharge: Guarded Discharge Disposition: Trnsfr to Other Facility Discharge Instructions Diet Instructions: As Tolerated, No Restrictions Additional Diet Instructions: Per Dr. Dmitry griffin Activities you can perform: Regular-No Restrictions Other Activity Instructions: Per Dr. Dmitry griffin Scheduled Appointment: [facility] medical floor telemetry Discharge Time > 30 minutes Mental Status Examination Appearance: Appropriate Consciousness: Alert Orientation: Person, Place (somewhat vague), Date/Time (somewhat vague) Motor Activity: Normal gait Speech: Unremarkable Language: Adequate Fund of Knowledge: Adequate Attention and Concentration: Other (fair) Memory: Impaired Mood: Appropriate Affect: Other (good range and intensity) Thought Process & Associations: Loose associations Thought Content: Appropriate Hallucination Type: None Delusion Type: None Suicidal Ideation: Yes (made vague statements to place) Suicidal Plan: No Suicidal Intention: No Homicidal Ideation: No Homicidal Plan: No Homicidal Intention: No Insight: Poor Judgment: Poor Discharge/Advance Care Plan Health Problems: (1) OTHER ALZHEIMER'S DISEASE (2) DEMENTIA IN OTH DISEASES CLASSD ELSWHR W BEHAVIORAL DISTURB Goals to promote your health * To prevent worsening of your condition and complications * To maintain your health at the optimal level Directions to meet your goals Take your medications as prescribed Follow your dietary instruction Follow activity as directed Keep your appointments as scheduled Take your immunizations and boosters as scheduled If your symptoms worsen call your PCP, if no PCP go to Urgent Care Center or Emergency Room For 03/03 questions related to your inpatient stay or results of tests pending at discharge, please contact Dr. Bebo Sharp at Smoking is Dangerous to Your Health. Avoid second hand smoking Bebo Sharp MD Jun 06, 2017 12:09
--- NOTE | 2017-06-06 13:21 | RADRPT ---
EXAM DATE/TIME: 06/06/2017 12:26 [place] COMPARISON: No previous studies available for comparison. INDICATIONS : Post helicat. Passed out and turned blue, responsive now. RADIATION DOSE: 56.35 CTDIvol (mGy) MEDICAL HISTORY : Hypertension. SURGICAL HISTORY : Pacemaker. ENCOUNTER: Initial ACUITY: 1 day PAIN SCALE: 0/10 LOCATION: cranial TECHNIQUE: Multiple contiguous axial images were obtained of the head. Using automated exposure control and adj ustment of the mA and/or kV according to patient size, radiation dose was kept as low as reasonably a chievable to obtain optimal diagnostic quality images. DICOM format image data is available electro nically for review and comparison. FINDINGS: CEREBRUM: The ventricles, sulci, and basal cisterns are prominent characteristic of moderate severity central c ortical atrophy. There is a focal area of encephalomalacia in the left parieto-occipital high convex ity characteristic of. No evidence of midline shift, mass lesion, hemorrhage or acute.. No extra-ax ial fluid collections are seen. POSTERIOR FOSSA: The cerebellum and brainstem are intact. The 4th ventricle is midline. The cerebellopontine angle i s unremarkable. EXTRACRANIAL: The visualized portion of the orbits is intact. There is prominent mucosal thickening in the inferio r left maxillary sinus without air-fluid level. SKULL: The calvaria is intact. No evidence of skull fracture. CONCLUSION: 1. 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 2. Left maxillary sinus disease. 3. No acute findings of the brain. David Sanchez MD on June 06, 2017 at 13:17 Board Certified Radiologist. This report was verified electronically.
--- NOTE | 2017-06-08 21:14 | EKG ---
Date Performed: 06/06/2017 Time Performed: 12:07:19 PTAGE: 89 years EKG: ELECTRONIC ATRIAL PACEMAKER MARKED LEFT AXIS DEVIATION RIGHT BUNDLE BRANCH BLOCK LEFT VENTR ICULAR HYPERTROPHY AND ST-T CHANGE ABNORMAL ECG PREVIOUS TRACING : 08/26/2005 13.09 DOCTOR: Fatoumata Peck Interpretating Date/Time 06/08/2017 21:03:40
== END 2017-06-06 12:18 | disposition short-term general hospital (02) | DRG 57 ==
LOC: NEPC 11:30 → NEDA 18:31 → H250 19:31
PROVIDERS: ADMIT Psychiatry & Neurology Psychiatry; ATTEND Psychiatry & Neurology Psychiatry
DX: G30.8 Other Alzheimer's disease (principal); F02.81 Dementia in other diseases classified elsewhere, unspecified severity, with behavioral disturbance; R06.81 Apnea, not elsewhere classified; E78.5 Hyperlipidemia, unspecified; E03.9 Hypothyroidism, unspecified; I12.9 Hypertensive chronic kidney disease with stage 1 through stage 4 chronic kidney disease, or unspecified chronic kidney disease; N18.9 Chronic kidney disease, unspecified; E55.9 Vitamin D deficiency, unspecified; Z95.0 Presence of cardiac pacemaker; Z85.46 Personal history of malignant neoplasm of prostate; Z86.73 Personal history of transient ischemic attack (TIA), and cerebral infarction without residual deficits
CPT/HCPCS: 70450; 80048; 80053; 80061; 80307; 82306; 83036; 84439; 84443; 85007; 85027; 93005; J2060

== ENCOUNTER 2017-06-06 13:05 | Inpatient (IN) | payer MEDICARE, OTHER ==
[~2017-06-06] VITALS: Ht 177.8 cm; Wt 63.0 kg
[~2017-06-06 13:05] MED LIST: ARMO30TA PO; ATOR10TA15 PO; DONE10TA7 PO; ISOS30TA3 PO; LORA-373 PO; METO25TA3 PO; TAMS0.4C4 PO
[2017-06-06 13:11] VITALS: BP 123/60; PULSE 78; RESP 18; TEMP 97.6; O2SAT 100
[2017-06-06] MEDS ORDERED: NALOXONE HCL 0.4 MG/ML AMP IV PUSH PRN (15:00)
[2017-06-06] MEDS ORDERED: MAGNESIUM HYDROXIDE SUSP 30 ML CUP PO PRN (15:00)
[2017-06-06] MEDS ORDERED: BISACODYL 10 MG SUPP RECTAL PRN (15:00)
[2017-06-06] MEDS ORDERED: ACETAMINOPHEN 325 MG TAB PO PRN (15:00)
[2017-06-06] MEDS ORDERED: SODIUM CHLORIDE 0.9% FLUSH 10 ML FLUSH IV FLUSH PRN ×2 (15:00→15:30)
[2017-06-06] MEDS ORDERED: ONDANSETRON HCL 4 MG/2 ML VIAL IVP PRN (15:00)
[2017-06-06] MEDS ORDERED: LACTULOSE SYRUP 20 GM/30 ML CUP PO PRN (15:00)
[2017-06-06 16:11] VITALS: BP 134/63; PULSE 64; RESP 18; TEMP 98.3; O2SAT 100
[2017-06-06 16:33] LABS: AUTOMATED NEUTROPHIL # 4.6 TH/MM3 (1.8-7.7); BASOPHIL % 0.1 % (0.0-2.0); EOSINOPHIL % 0.4 % (0.0-4.0); HEMATOCRIT 30.2 % (39.0-51.0); LYMPH % 12.6 % (9.0-44.0); LYMPHOCYTE # 0.7 TH/MM3 (1.0-4.8); MEAN CORPUSCULAR HEMOGLOBIN 28.4 PG (27.0-34.0); MEAN PLATELET VOLUME 9.7 FL (7.0-11.0); MONOCYTE # 0.5 TH/MM3 (0-0.9); NEUT % 77.9 % (16.0-70.0); PLATELET COUNT 90 TH/MM3 (150-450); RED BLOOD COUNT 3.51 MIL/MM3 (4.50-5.90); RED CELL DISTRIBUTION WIDTH 15.4 % (11.6-17.2); WHITE BLOOD COUNT 5.8 TH/MM3 (4.0-11.0)
[2017-06-06 16:56] LABS: ALBUMIN 3.3 GM/DL (3.4-5.0); ALT (GPT) 16 U/L (12-78); AST (GOT) 13 U/L (15-37); BICARBONATE 22.6 MEQ/L (21.0-32.0); BLOOD UREA NITROGEN 46 MG/DL (7-18); CALCIUM 8.8 MG/DL (8.5-10.1); CHLORIDE 108 MEQ/L (98-107); CREATININE 2.03 MG/DL (0.60-1.30); GLOMERULAR FILTRATION RATE 31 ML/MIN (>89); GLUCOSE,RANDOM 243 MG/DL (74-106); SODIUM (NA) 137 MEQ/L (136-145)
[2017-06-06 16:59] LABS: ALKALINE PHOSPHATASE 72 U/L (45-117); TOTAL BILIRUBIN ADULT 0.5 MG/DL (0.2-1.0)
[2017-06-06 17:10] LABS: ACANTHOCYTES 1+ (NORMAL)
[2017-06-06 17:34] LABS: TROPONIN I LESS THAN 0.02 NG/ML (0.02-0.05)
--- NOTE | 2017-06-06 17:59 | HHI.HP ---
History of Present Illness Service Medicine Primary Care Physician Dr. Andres Admission Diagnosis Diagnoses: (1) Syncopal episodes History of Present Illness The patient is 89 years old who was transferred from psychiatric unit to [facility] for a syncopal event. He was found unresponsive and a Helicat was called. He has a history of senile dementia. He was a pardo act because he became agressive with his and wanting to drive. He became agitated when he was forcibly removed from his house and brought to the hospital. He has a past medical history of hypothyroidism, HTN, HLD, pacemaker, CKD, AFIB, prostate cancer, and CVA. Review of Systems Constitutional: COMPLAINS OF: Fatigue, DENIES: Fever, Chills Cardiovascular: COMPLAINS OF: Chest pain, Syncope, DENIES: Dyspnea on Exertion Gastrointestinal: DENIES: Abdominal pain, Constipation, Diarrhea Psychiatric: COMPLAINS OF: Anxiety, Agitation Past Family Social History Allergies: Coded Allergies: No Known Allergies (Verified , 09/04/05) Past Medical History Hypothyroidism HTN HLD AFIB CKD HX of CVA HX of prostate cancer Past Surgical History Past Surgical History pacemaker Active Ordered Medications Current Medications Medications (Trade) Dose Ordered Sig/Brendan Route Start Time Stop Time Status Last Admin Sodium Chloride 1,000 ml @ 75 mls/hr [id number] IV 06/06/17 14:50 (NS Flush) 2 ml UNSCH PRN IV FLUSH 06/06/17 15:00 (NS Flush) 2 ml BID IV FLUSH 06/06/17 21:00 (Tylenol) 650 mg Q4H PRN PO 06/06/17 15:00 (Zofran Inj) 4 mg Q6H PRN IVP 06/06/17 15:00 (Narcan Inj) 0.4 mg UNSCH PRN IV PUSH 06/06/17 15:00 (Milk Of Magnesia Liq) 30 ml Q12H PRN PO 06/06/17 15:00 (Dulcolax Supp) 10 mg DAILY PRN RECTAL 06/06/17 15:00 (Lactulose Liq) 30 ml DAILY PRN PO 06/06/17 15:00 (Eliquis) 2.5 mg BID PO 06/06/17 21:00 Family History unable to obtain Social History No smoking or ETOH use Lives with Physical Exam Vital Signs Vital Signs Date Time Temp Pulse Resp B/P (MAP) Pulse Ox O2 Delivery O2 Flow Rate FiO2 06/06/17 16:11 98.3 64 18 134/63 (86) 100 06/06/17 13:11 97.6 78 18 123/60 (81) 100 Physical Exam GENERAL: alert not oriented SKIN: Warm and dry. HEAD: Normocephalic. EYES: No scleral icterus. No injection or drainage. NECK: Supple, trachea midline. No JVD or lymphadenopathy. CARDIOVASCULAR: Regular rate and rhythm without murmurs, gallops, or rubs. RESPIRATORY: Breath sounds equal bilaterally. No accessory muscle use. GASTROINTESTINAL: Abdomen soft, non-tender, nondistended. MUSCULOSKELETAL: No cyanosis, or edema. Tenderness noted on palpation in chest region BACK: Nontender without obvious deformity. No CVA tenderness. Laboratory Laboratory Tests Test 06/06/17 16:15 White Blood Count 5.8 Red Blood Count 3.51 Hemoglobin 10.0 Hematocrit 30.2 Mean Corpuscular Volume 86.0 Mean Corpuscular Hemoglobin 28.4 Mean Corpuscular Hemoglobin Concent 33.0 Red Cell Distribution Width 15.4 Platelet Count 90 Mean Platelet Volume 9.7 Neutrophils (%) (Auto) 77.9 Lymphocytes (%) (Auto) 12.6 Monocytes (%) (Auto) 9.0 Eosinophils (%) (Auto) 0.4 Basophils (%) (Auto) 0.1 Neutrophils # (Auto) 4.6 Lymphocytes # (Auto) 0.7 Monocytes # (Auto) 0.5 Eosinophils # (Auto) 0.0 Basophils # (Auto) 0.0 CBC Comment AUTO DIFF Differential Comment AUTO DIFF CONFIRMED Platelet Estimate LOW Platelet Morphology Comment NORMAL Acanthocytes 1+ Blood Urea Nitrogen 46 Creatinine 2.03 Random Glucose 243 Total Protein 7.0 Albumin 3.3 Calcium Level 8.8 Alkaline Phosphatase 72 Aspartate Amino Transf (AST/SGOT) 13 Alanine Aminotransferase (ALT/SGPT) 16 Total Bilirubin 0.5 Sodium Level 137 Potassium Level 5.1 Chloride Level 108 Carbon Dioxide Level 22.6 Anion Gap 6 Estimat Glomerular Filtration Rate 31 Troponin I LESS THAN 0.02 Result Diagram: 06/06/17 1615 06/06/175 Caprini VTE Risk Assessment Caprini VTE Risk Assessment: Mod/High Risk (score >= 2) Caprini Risk Assessment Model Point Value = 1 Point Value = 2 Point Value = 3 Point Value = 5 Age 41-60 Minor surgery BMI > 25 kg/m2 Swollen legs Varicose veins or History of unexplained or recurrent spontaneous Oral contraceptives or hormone replacement Sepsis (< 1 month) Serious lung disease, including pneumonia (< 1 month) Abnormal pulmonary function Acute myocardial infarction Congestive heart failure (< 1 month) History of inflammatory bowel disease Medical patient at bed rest Age 61-74 Arthroscopic surgery Major open surgery (> 45 min) Laparoscopic surgery (> 45 min) Malignancy Confined to bed (> 72 hours) Immobilizing plaster cast Central venous access Age >= 75 History of VTE Family history of VTE Factor V Leiden Prothrombin [id number] Lupus anticoagulant Anticardiolipin antibodies Elevated serum homocysteine Heparin-induced thrombocytopenia Other congenital or acquired thrombophilia Stroke (< 1 month) Elective arthroplasty Hip, pelvis, or leg fracture Acute spinal cord injury (< 1 month) Prophylaxis Regimen Total Risk Factor Score Risk Level Prophylaxis Regimen 0-1 Low Early ambulation 2 Moderate Order ONE of the following: *Sequential Compression Device (SCD) *Heparin 5000 units SQ BID 3-4 Higher Order ONE of the following medications: *Heparin 5000 units SQ TID *Enoxaparin/Lovenox 40 mg SQ daily (WT < 150 kg, CrCl > 30 mL/min) *Enoxaparin/Lovenox 30 mg SQ daily (WT < 150 kg, CrCl > 10-29 mL/min) *Enoxaparin/Lovenox 30 mg SQ BID (WT < 150 kg, CrCl > 30 mL/min) AND/OR *Sequential Compression Device (SCD) 5 or more Highest Order ONE of the following medications: *Heparin 5000 units SQ TID (Preferred with Epidurals) *Enoxaparin/Lovenox 40 mg SQ daily (WT < 150 kg, CrCl > 30 mL/min) *Enoxaparin/Lovenox 30 mg SQ daily (WT < 150 kg, CrCl > 10-29 mL/min) *Enoxaparin/Lovenox 30 mg SQ BID (WT < 150 kg, CrCl > 30 mL/min) AND *Sequential Compression Device (SCD) Assessment and Plan Problem List: (1) CKD (chronic kidney disease) ICD Codes: N18.9 - Chronic kidney disease, unspecified (2) DEMENTIA IN OTH DISEASES CLASSD ELSWHR W BEHAVIORAL DISTURB ICD Codes: F02.81 - DEMENTIA IN OTH DISEASES CLASSD ELSWHR W BEHAVIORAL DISTURB (3) HLD (hyperlipidemia) ICD Codes: E78.5 - Hyperlipidemia, unspecified (4) HTN (hypertension) ICD Codes: I10 - Essential (primary) hypertension (5) Hypothyroidism ICD Codes: E03.9 - Hypothyroidism, unspecified (6) History of prostate cancer ICD Codes: Z85.46 - Personal history of malignant neoplasm of prostate (7) Syncopal episodes ICD Codes: R55 - Syncope and collapse Assessment and Plan 06/06/17 Syncopal event: Patient transfered from psychiatric unit to [facility] after helicat call. Patient was found to be unresponsive but rapidly returned to baseline. Patient put on telemetry. Cardiology consulted, labs ordered, trop obtained and negative. Discussed with cardiology. Patient paced. AMS: Patient is back to baseline mental status. Head CT with no acute findings. HLD; Continue statin CKD: Will monitor and avoid nephro toxins. Hypothyroidism: replacement continued Patient is DNR status I and the WRITING CENTER DIRECTOR have both examined this patient and reviewed this note and I agree with these findings and plan of care. Parris De Leon. WRITING CENTER DIRECTOR Jun 06, 2017 17:59
[2017-06-06] MEDS: SODIUM CHLOR 0.45% 1000 ML INJ 1,000 ML IV SCH (20:15)
[2017-06-06] MEDS: METOPROLOL TARTRATE 25 MG TAB PO SCH (20:22)
[2017-06-06] MEDS: DONEPEZIL HCL 5 MG TAB PO SCH (20:22)
[2017-06-06] MEDS: ATORVASTATIN 10 MG TAB PO SCH (20:22)
[2017-06-06] MEDS: TAMSULOSIN HCL 0.4 MG CAP PO SCH (20:22)
[2017-06-06] MEDS: APIXABAN 2.5 MG TABLET PO SCH (20:22)
[2017-06-06] MEDS: SODIUM CHLORIDE 0.9% FLUSH 10 ML FLUSH IV FLUSH SCH (20:23)
[2017-06-06 20:36] VITALS: BP 128/59; PULSE 72; RESP 20; TEMP 99.5; O2SAT 98
[2017-06-06] MEDS ORDERED: SODIUM CHLORIDE 0.9% FLUSH 10 ML FLUSH IV FLUSH SCH (21:00)
[2017-06-07] VITALS (10 sets, daily range): BP systolic 135–179; BP diastolic 64–79; PULSE 60–70; RESP 18–20; TEMP 96–98.5; O2SAT 98–100
[2017-06-07 04:04] LABS: AUTOMATED NEUTROPHIL # 4.1 TH/MM3 (1.8-7.7); BASOPHIL % 0.2 % (0.0-2.0); EOSINOPHIL % 0.7 % (0.0-4.0); HEMATOCRIT 28.7 % (39.0-51.0); HEMOGLOBIN 9.7 GM/DL (13.0-17.0); LYMPH % 18.6 % (9.0-44.0); LYMPHOCYTE # 1.1 TH/MM3 (1.0-4.8); MEAN CELL VOLUME 85.5 FL (80.0-100.0); MEAN CORPUSCULAR HEMOGLOBIN 28.8 PG (27.0-34.0); MEAN CORPUSCULAR HGB CONC 33.7 % (32.0-36.0); MEAN PLATELET VOLUME 10.4 FL (7.0-11.0); MONOCYTE # 0.9 TH/MM3 (0-0.9); NEUT % 66.5 % (16.0-70.0); PLATELET COUNT 83 TH/MM3 (150-450); RED BLOOD COUNT 3.36 MIL/MM3 (4.50-5.90); RED CELL DISTRIBUTION WIDTH 15.6 % (11.6-17.2); WHITE BLOOD COUNT 6.1 TH/MM3 (4.0-11.0)
[2017-06-07] MEDS: SODIUM CHLOR 0.45% 1000 ML INJ 1,000 ML IV SCH (04:10)
[2017-06-07 04:30] LABS: ALBUMIN 3.1 GM/DL (3.4-5.0); AST (GOT) 13 U/L (15-37); BICARBONATE 23.5 MEQ/L (21.0-32.0); BLOOD UREA NITROGEN 45 MG/DL (7-18); CALCIUM 8.3 MG/DL (8.5-10.1); CHLORIDE 109 MEQ/L (98-107); CREATININE 1.77 MG/DL (0.60-1.30); GLOMERULAR FILTRATION RATE 36 ML/MIN (>89); GLUCOSE,RANDOM 94 MG/DL (74-106); SODIUM (NA) 139 MEQ/L (136-145)
[2017-06-07 04:36] LABS: ALKALINE PHOSPHATASE 69 U/L (45-117); ALT (GPT) 18 U/L (12-78); TOTAL BILIRUBIN ADULT 0.6 MG/DL (0.2-1.0); TOTAL PROTEIN 6.7 GM/DL (6.4-8.2); TROPONIN I 0.02 NG/ML (0.02-0.05)
[2017-06-07 05:41] LABS: ACANTHOCYTES 1+ (NORMAL)
[2017-06-07 05:42] LABS: OVALOCYTES 1+ (NORMAL)
[2017-06-07] MEDS: ISOSORBIDE MONONITRATE 30 MG TAB PO SCH (06:33)
[2017-06-07] MEDS: METOPROLOL TARTRATE 25 MG TAB PO SCH ×2 (08:07→22:00)
[2017-06-07] MEDS: SODIUM CHLORIDE 0.9% FLUSH 10 ML FLUSH IV FLUSH SCH ×2 (08:07→22:01)
[2017-06-07] MEDS: APIXABAN 2.5 MG TABLET PO SCH ×2 (08:07→22:00)
[2017-06-07] MEDS: THYROID 30 MG TAB PO SCH (08:07)
--- NOTE | 2017-06-07 08:09 | PD.CONS ---
HPI Service Cardiology Consult Requested By Vladimir Reason for Consult Subdural hematoma Primary Care Physician Unknown History of Present Illness Patient on Wafarin for AF had fall no LOC now with subdural. Past Family Social History Allergies: Coded Allergies: No Known Allergies (Verified , 09/04/05) Reported Medications Reported Meds & Active Scripts Active Reported [place] Thyroid (Thyroid) 30 Mg Tab 30 Mg PO DAILY Tamsulosin (Tamsulosin HCl) 0.4 Mg Cap 0.4 Mg PO HS Isosorbide Mononitrate ER (Isosorbide Mononitrate) 30 Mg Bill 30 Mg PO DAILY Atorvastatin (Atorvastatin Calcium) 10 Mg Tab 10 Mg PO HS Metoprolol Tartrate 25 Mg Tab 25 Mg PO BID Lorazepam 0.5 Mg Tab Unknown Dose PO Q8H Donepezil 10 Mg Tab 10 Mg PO HS Active Ordered Medications Current Medications Medications (Trade) Dose Ordered Sig/Brendan Route Start Time Stop Time Status Last Admin Sodium Chloride 1,000 ml @ 75 mls/hr [id number] IV 06/06/17 14:50 06/06/17 20:15 (NS Flush) 2 ml UNSCH PRN IV FLUSH 06/06/17 15:00 (NS Flush) 2 ml BID IV FLUSH 06/06/17 21:00 06/06/17 20:23 (Tylenol) 650 mg Q4H PRN PO 06/06/17 15:00 (Zofran Inj) 4 mg Q6H PRN IVP 06/06/17 15:00 (Narcan Inj) 0.4 mg UNSCH PRN IV PUSH 06/06/17 15:00 (Milk Of Magnesia Liq) 30 ml Q12H PRN PO 06/06/17 15:00 (Dulcolax Supp) 10 mg DAILY PRN RECTAL 06/06/17 15:00 (Lactulose Liq) 30 ml DAILY PRN PO 06/06/17 15:00 (Eliquis) 2.5 mg BID PO 06/06/17 21:00 06/06/17 20:22 (Lipitor) 10 mg HS PO 06/06/17 21:00 06/06/17 20:22 (Aricept) 10 mg HS PO 06/06/17 21:00 06/06/17 20:22 (Imdur) 30 mg DAILY@0700 PO 06/07/17 07:00 06/07/17 06:33 (Lopressor) 25 mg BID PO 06/06/17 21:00 06/06/17 20:22 (Flomax) 0.4 mg HS PO 06/06/17 21:00 06/06/17 20:22 ([place] Thyroid) 30 mg DAILY PO 06/07/17 09:00 (Xanax) 0.5 mg Q8H PRN PO 06/06/17 18:00 Physical Exam Vital Signs Vital Signs Date Time Temp Pulse Resp B/P (MAP) Pulse Ox O2 Delivery O2 Flow Rate FiO2 06/07/17 07:01 63 136/64 (88) 06/07/17 04:17 98.5 70 18 160/71 (100) 99 06/07/17 00:32 60 06/07/17 00:12 98.5 63 18 135/64 (87) 98 06/06/17 20:36 99.5 72 20 128/59 (82) 98 06/06/17 16:11 98.3 64 18 134/63 (86) 100 06/06/17 13:11 97.6 78 18 123/60 (81) 100 Physical Exam patient seen examined in [facility] Laboratory Laboratory Tests Test 06/06/17 16:15 06/06/17 22:14 06/07/17 03:30 White Blood Count 5.8 6.1 Red Blood Count 3.51 3.36 Hemoglobin 10.0 9.7 Hematocrit 30.2 28.7 Mean Corpuscular Volume 86.0 85.5 Mean Corpuscular Hemoglobin 28.4 28.8 Mean Corpuscular Hemoglobin Concent 33.0 33.7 Red Cell Distribution Width 15.4 15.6 Platelet Count 90 83 Mean Platelet Volume 9.7 10.4 Neutrophils (%) (Auto) 77.9 66.5 Lymphocytes (%) (Auto) 12.6 18.6 Monocytes (%) (Auto) 9.0 14.0 Eosinophils (%) (Auto) 0.4 0.7 Basophils (%) (Auto) 0.1 0.2 Neutrophils # (Auto) 4.6 4.1 Lymphocytes # (Auto) 0.7 1.1 Monocytes # (Auto) 0.5 0.9 Eosinophils # (Auto) 0.0 0.0 Basophils # (Auto) 0.0 0.0 CBC Comment AUTO DIFF AUTO DIFF Differential Comment AUTO DIFF CONFIRMED AUTO DIFF CONFIRMED Platelet Estimate LOW LOW Platelet Morphology Comment NORMAL NORMAL Acanthocytes 1+ 1+ Blood Urea Nitrogen 46 45 Creatinine 2.03 1.77 Random Glucose 243 94 Total Protein 7.0 6.7 Albumin 3.3 3.1 Calcium Level 8.8 8.3 Alkaline Phosphatase 72 69 Aspartate Amino Transf (AST/SGOT) 13 13 Alanine Aminotransferase (ALT/SGPT) 16 18 Total Bilirubin 0.5 0.6 Sodium Level 137 139 Potassium Level 5.1 5.1 Chloride Level 108 109 Carbon Dioxide Level 22.6 23.5 Anion Gap 6 7 Estimat Glomerular Filtration Rate 31 36 Troponin I LESS THAN 0.02 0.02 0.02 Ovalocytes 1+ Result Diagram: 06/07/17 03306/07/17329 Assessment and Plan Assessment and Plan AF on OAC Ok to hold warfarin for 30d. Will discuss with Neuro surg Tiago Tse MD Jun 07, 2017 08:09
--- NOTE | 2017-06-07 08:10 | PD.CARD.PN ---
Subjective Subjective Remarks Last consult note was in error and was for another patient. Please disregard. Objective Medications Current Medications Medications (Trade) Dose Ordered Sig/Brendan Route Start Time Stop Time Status Last Admin Sodium Chloride 1,000 ml @ 75 mls/hr [id number] IV 06/06/17 14:50 06/06/17 20:15 (NS Flush) 2 ml UNSCH PRN IV FLUSH 06/06/17 15:00 (NS Flush) 2 ml BID IV FLUSH 06/06/17 21:00 06/06/17 20:23 (Tylenol) 650 mg Q4H PRN PO 06/06/17 15:00 (Zofran Inj) 4 mg Q6H PRN IVP 06/06/17 15:00 (Narcan Inj) 0.4 mg UNSCH PRN IV PUSH 06/06/17 15:00 (Milk Of Magnesia Liq) 30 ml Q12H PRN PO 06/06/17 15:00 (Dulcolax Supp) 10 mg DAILY PRN RECTAL 06/06/17 15:00 (Lactulose Liq) 30 ml DAILY PRN PO 06/06/17 15:00 (Eliquis) 2.5 mg BID PO 06/06/17 21:00 06/07/17 08:07 (Lipitor) 10 mg HS PO 06/06/17 21:00 06/06/17 20:22 (Aricept) 10 mg HS PO 06/06/17 21:00 06/06/17 20:22 (Imdur) 30 mg DAILY@0700 PO 06/07/17 07:00 06/07/17 06:33 (Lopressor) 25 mg BID PO 06/06/17 21:00 06/07/17 08:07 (Flomax) 0.4 mg HS PO 06/06/17 21:00 06/06/17 20:22 ([place] Thyroid) 30 mg DAILY PO 06/07/17 09:00 06/07/17 08:07 (Xanax) 0.5 mg Q8H PRN PO 06/06/17 18:00 Vital Signs / I&O Vital Signs Date Time Temp Pulse Resp B/P (MAP) Pulse Ox O2 Delivery O2 Flow Rate FiO2 06/07/17 07:01 63 136/64 (88) 06/07/17 04:17 98.5 70 18 160/71 (100) 99 06/07/17 00:32 60 06/07/17 00:12 98.5 63 18 135/64 (87) 98 06/06/17 20:36 99.5 72 20 128/59 (82) 98 06/06/17 16:11 98.3 64 18 134/63 (86) 100 06/06/17 13:11 97.6 78 18 123/60 (81) 100 I/O 06/06/17 06/06/17 06/06/17 06/07/17 06/07/17 06/07/17 07:00 15:00 23:00 07:00 15:00 23:00 Output Total 850 ml Balance -850 ml Output Urine Total 850 ml # Voids 1 # Bowel Movements 0 Laboratory Laboratory Tests Test 06/06/17 16:15 06/06/17 22:14 06/07/17 03:30 White Blood Count 5.8 TH/MM3 6.1 TH/MM3 Red Blood Count 3.51 MIL/MM3 3.36 MIL/MM3 Hemoglobin 10.0 GM/DL 9.7 GM/DL Hematocrit 30.2 % 28.7 % Mean Corpuscular Volume 86.0 FL 85.5 FL Mean Corpuscular Hemoglobin 28.4 PG 28.8 PG Mean Corpuscular Hemoglobin Concent 33.0 % 33.7 % Red Cell Distribution Width 15.4 % 15.6 % Platelet Count 90 TH/MM3 83 TH/MM3 Mean Platelet Volume 9.7 FL 10.4 FL Neutrophils (%) (Auto) 77.9 % 66.5 % Lymphocytes (%) (Auto) 12.6 % 18.6 % Monocytes (%) (Auto) 9.0 % 14.0 % Eosinophils (%) (Auto) 0.4 % 0.7 % Basophils (%) (Auto) 0.1 % 0.2 % Neutrophils # (Auto) 4.6 TH/MM3 4.1 TH/MM3 Lymphocytes # (Auto) 0.7 TH/MM3 1.1 TH/MM3 Monocytes # (Auto) 0.5 TH/MM3 0.9 TH/MM3 Eosinophils # (Auto) 0.0 TH/MM3 0.0 TH/MM3 Basophils # (Auto) 0.0 TH/MM3 0.0 TH/MM3 CBC Comment AUTO DIFF AUTO DIFF Differential Comment AUTO DIFF CONFIRMED AUTO DIFF CONFIRMED Platelet Estimate LOW LOW Platelet Morphology Comment NORMAL NORMAL Acanthocytes 1+ 1+ Blood Urea Nitrogen 46 MG/DL 45 MG/DL Creatinine 2.03 MG/DL 1.77 MG/DL Random Glucose 243 MG/DL 94 MG/DL Total Protein 7.0 GM/DL 6.7 GM/DL Albumin 3.3 GM/DL 3.1 GM/DL Calcium Level 8.8 MG/DL 8.3 MG/DL Alkaline Phosphatase 72 U/L 69 U/L Aspartate Amino Transf (AST/SGOT) 13 U/L 13 U/L Alanine Aminotransferase (ALT/SGPT) 16 U/L 18 U/L Total Bilirubin 0.5 MG/DL 0.6 MG/DL Sodium Level 137 MEQ/L 139 MEQ/L Potassium Level 5.1 MEQ/L 5.1 MEQ/L Chloride Level 108 MEQ/L 109 MEQ/L Carbon Dioxide Level 22.6 MEQ/L 23.5 MEQ/L Anion Gap 6 MEQ/L 7 MEQ/L Estimat Glomerular Filtration Rate 31 ML/MIN 36 ML/MIN Troponin I LESS THAN 0.02 NG/ML 0.02 NG/ML 0.02 NG/ML Ovalocytes 1+ Assessment and Plan Assessment and Plan AF on OAC Ok to hold warfarin for 30d. Will discuss with Neuro surg Tiago Tse MD Jun 07, 2017 08:10
--- NOTE | 2017-06-07 08:14 | PD.CONS ---
HPI Service Cardiology Consult Requested By [facility] Primary Care Physician Unknown History of Present Illness Patient seen and examined unreliable historian has pacemaker not dependent. Reviewed Hospitalist notes. No acute distress at this time is DNR. Past Family Social History Allergies: Coded Allergies: No Known Allergies (Verified , 09/04/05) Reported Medications Reported Meds & Active Scripts Active Reported [place] Thyroid (Thyroid) 30 Mg Tab 30 Mg PO DAILY Tamsulosin (Tamsulosin HCl) 0.4 Mg Cap 0.4 Mg PO HS Isosorbide Mononitrate ER (Isosorbide Mononitrate) 30 Mg Bill 30 Mg PO DAILY Atorvastatin (Atorvastatin Calcium) 10 Mg Tab 10 Mg PO HS Metoprolol Tartrate 25 Mg Tab 25 Mg PO BID Lorazepam 0.5 Mg Tab Unknown Dose PO Q8H Donepezil 10 Mg Tab 10 Mg PO HS Active Ordered Medications Current Medications Medications (Trade) Dose Ordered Sig/Brendan Route Start Time Stop Time Status Last Admin Sodium Chloride 1,000 ml @ 75 mls/hr [id number] IV 06/06/17 14:50 06/06/17 20:15 (NS Flush) 2 ml UNSCH PRN IV FLUSH 06/06/17 15:00 (NS Flush) 2 ml BID IV FLUSH 06/06/17 21:00 06/06/17 20:23 (Tylenol) 650 mg Q4H PRN PO 06/06/17 15:00 (Zofran Inj) 4 mg Q6H PRN IVP 06/06/17 15:00 (Narcan Inj) 0.4 mg UNSCH PRN IV PUSH 06/06/17 15:00 (Milk Of Magnesia Liq) 30 ml Q12H PRN PO 06/06/17 15:00 (Dulcolax Supp) 10 mg DAILY PRN RECTAL 06/06/17 15:00 (Lactulose Liq) 30 ml DAILY PRN PO 06/06/17 15:00 (Eliquis) 2.5 mg BID PO 06/06/17 21:00 06/07/17 08:07 (Lipitor) 10 mg HS PO 06/06/17 21:00 06/06/17 20:22 (Aricept) 10 mg HS PO 06/06/17 21:00 06/06/17 20:22 (Imdur) 30 mg DAILY@0700 PO 06/07/17 07:00 06/07/17 06:33 (Lopressor) 25 mg BID PO 06/06/17 21:00 06/07/17 08:07 (Flomax) 0.4 mg HS PO 06/06/17 21:00 06/06/17 20:22 ([place] Thyroid) 30 mg DAILY PO 06/07/17 09:00 06/07/17 08:07 (Xanax) 0.5 mg Q8H PRN PO 06/06/17 18:00 Physical Exam Vital Signs Vital Signs Date Time Temp Pulse Resp B/P (MAP) Pulse Ox O2 Delivery O2 Flow Rate FiO2 06/07/17 07:01 63 136/64 (88) 06/07/17 04:17 98.5 70 18 160/71 (100) 99 06/07/17 00:32 60 06/07/17 00:12 98.5 63 18 135/64 (87) 98 06/06/17 20:36 99.5 72 20 128/59 (82) 98 06/06/17 16:11 98.3 64 18 134/63 (86) 100 06/06/17 13:11 97.6 78 18 123/60 (81) 100 Physical Exam Lungs clear Systolic murmur unchanged MDT pacmaker no edema Confused. Laboratory Laboratory Tests Test 06/06/17 16:15 06/06/17 22:14 06/07/17 03:30 White Blood Count 5.8 6.1 Red Blood Count 3.51 3.36 Hemoglobin 10.0 9.7 Hematocrit 30.2 28.7 Mean Corpuscular Volume 86.0 85.5 Mean Corpuscular Hemoglobin 28.4 28.8 Mean Corpuscular Hemoglobin Concent 33.0 33.7 Red Cell Distribution Width 15.4 15.6 Platelet Count 90 83 Mean Platelet Volume 9.7 10.4 Neutrophils (%) (Auto) 77.9 66.5 Lymphocytes (%) (Auto) 12.6 18.6 Monocytes (%) (Auto) 9.0 14.0 Eosinophils (%) (Auto) 0.4 0.7 Basophils (%) (Auto) 0.1 0.2 Neutrophils # (Auto) 4.6 4.1 Lymphocytes # (Auto) 0.7 1.1 Monocytes # (Auto) 0.5 0.9 Eosinophils # (Auto) 0.0 0.0 Basophils # (Auto) 0.0 0.0 CBC Comment AUTO DIFF AUTO DIFF Differential Comment AUTO DIFF CONFIRMED AUTO DIFF CONFIRMED Platelet Estimate LOW LOW Platelet Morphology Comment NORMAL NORMAL Acanthocytes 1+ 1+ Blood Urea Nitrogen 46 45 Creatinine 2.03 1.77 Random Glucose 243 94 Total Protein 7.0 6.7 Albumin 3.3 3.1 Calcium Level 8.8 8.3 Alkaline Phosphatase 72 69 Aspartate Amino Transf (AST/SGOT) 13 13 Alanine Aminotransferase (ALT/SGPT) 16 18 Total Bilirubin 0.5 0.6 Sodium Level 137 139 Potassium Level 5.1 5.1 Chloride Level 108 109 Carbon Dioxide Level 22.6 23.5 Anion Gap 6 7 Estimat Glomerular Filtration Rate 31 36 Troponin I LESS THAN 0.02 0.02 0.02 Ovalocytes 1+ Result Diagram: 06/07/17 0330 06/07/17329 Assessment and Plan Assessment and Plan AF HTN Ch Kid Dz MDT pacemaker SSS: not dependent Syncope ? VT Will have pacemaker interrrogated. DNR Tiago Tse MD Jun 07, 2017 08:14
[2017-06-07] MEDS: ALPRAZolam 0.5 MG TAB PO PRN (12:16)
--- NOTE | 2017-06-07 12:29 | HHI.PR ---
Subjective Remarks Patient sitting up in bed. Denies any SOB. Chest discomfort noted on palpation only. Objective Vital Signs Date Time Temp Pulse Resp B/P (MAP) Pulse Ox O2 Delivery O2 Flow Rate FiO2 06/07/17 12:18 98.0 68 20 163/77 (105) 100 06/07/17 09:51 62 06/07/17 08:10 98.2 66 20 136/64 (88) 100 06/07/17 07:01 63 136/64 (88) 06/07/17 04:17 98.5 70 18 160/71 (100) 99 06/07/17 00:32 60 06/07/17 00:12 98.5 63 18 135/64 (87) 98 06/06/17 20:36 99.5 72 20 128/59 (82) 98 06/06/17 16:11 98.3 64 18 134/63 (86) 100 06/06/17 13:11 97.6 78 18 123/60 (81) 100 I/O 06/06/17 06/06/17 06/06/17 06/07/17 06/07/17 06/07/17 07:00 15:00 23:00 07:00 15:00 23:00 Output Total 850 ml Balance -850 ml Output Urine Total 850 ml # Voids 1 # Bowel Movements 0 Result Diagram: 06/07/1732906/07/17 033 Objective Remarks GENERAL: Alert not oriented. SKIN: Warm and dry. HEAD: Normocephalic. EYES: No scleral icterus. No injection or drainage. NECK: Supple, trachea midline. No JVD or lymphadenopathy. CARDIOVASCULAR: Regular rate and rhythm without murmurs, gallops, or rubs. RESPIRATORY: Breath sounds equal bilaterally. No accessory muscle use. GASTROINTESTINAL: Abdomen soft, non-tender, nondistended. MUSCULOSKELETAL: No cyanosis, or edema. BACK: Nontender without obvious deformity. No CVA tenderness. Medications and IVs Current Medications Medications (Trade) Dose Ordered Sig/Brendan Route Start Time Stop Time Status Last Admin Sodium Chloride 1,000 ml @ 75 mls/hr [id number] IV 06/06/17 14:50 06/06/17 20:15 (NS Flush) 2 ml UNSCH PRN IV FLUSH 06/06/17 15:00 (NS Flush) 2 ml BID IV FLUSH 06/06/17 21:00 06/06/17 20:23 (Tylenol) 650 mg Q4H PRN PO 06/06/17 15:00 (Zofran Inj) 4 mg Q6H PRN IVP 06/06/17 15:00 (Narcan Inj) 0.4 mg UNSCH PRN IV PUSH 06/06/17 15:00 (Milk Of Magnesia Liq) 30 ml Q12H PRN PO 06/06/17 15:00 (Dulcolax Supp) 10 mg DAILY PRN RECTAL 06/06/17 15:00 (Lactulose Liq) 30 ml DAILY PRN PO 06/06/17 15:00 (Eliquis) 2.5 mg BID PO 06/06/17 21:00 06/07/17 08:07 (Lipitor) 10 mg HS PO 06/06/17 21:00 06/06/17 20:22 (Aricept) 10 mg HS PO 06/06/17 21:00 06/06/17 20:22 (Imdur) 30 mg DAILY@0700 PO 06/07/17 07:00 06/07/17 06:33 (Lopressor) 25 mg BID PO 06/06/17 21:00 06/07/17 08:07 (Flomax) 0.4 mg HS PO 06/06/17 21:00 06/06/17 20:22 ([place] Thyroid) 30 mg DAILY PO 06/07/17 09:00 06/07/17 08:07 (Xanax) 0.5 mg Q8H PRN PO 06/06/17 18:00 06/07/17 12:16 Assessment and Plan Problem List: (1) CKD (chronic kidney disease) ICD Codes: N18.9 - Chronic kidney disease, unspecified (2) DEMENTIA IN OTH DISEASES CLASSD ELSWHR W BEHAVIORAL DISTURB ICD Codes: F02.81 - DEMENTIA IN OTH DISEASES CLASSD ELSWHR W BEHAVIORAL DISTURB (3) HLD (hyperlipidemia) ICD Codes: E78.5 - Hyperlipidemia, unspecified (4) HTN (hypertension) ICD Codes: I10 - Essential (primary) hypertension (5) Hypothyroidism ICD Codes: E03.9 - Hypothyroidism, unspecified (6) History of prostate cancer ICD Codes: Z85.46 - Personal history of malignant neoplasm of prostate (7) Syncopal episodes ICD Codes: R55 - Syncope and collapse Assessment and Plan 06/06/17 Syncopal event: Patient transfered from psychiatric unit to main hospital after helicat call. Patient was found to be unresponsive but rapidly returned to baseline. Patient put on telemetry. Cardiology consulted, labs ordered, trop obtained and negative. Discussed with cardiology. Patient paced. AMS: Patient is back to baseline mental status. Head CT with no acute findings. HLD; Continue statin CKD: Will monitor and avoid nephro toxins. Hypothyroidism: replacement continued Patient is DNR status 06/07/17 Syncopal event: No further episodes noted. Cardiology consulting. Pacemaker interrogation ordered. Has chest tenderness noted on palpation only. Trop negative. Tylenol for pain. AMS: Patient is confused. Has advanced and progress dementia. Head CT with no acute findings. Per nursing wandering in [place] will be moved closer to nurses station. EEG ordered CKD: IVF discontined Creat and BUN improved. Patient will need skilled nurse placement has become to difficult for to care for. I and the INVASIVE CARDIOVASCULAR TECHNOLOGIST have both examined this patient and reviewed this note and I agree with these findings and plan of care. Rafa Andres DO Discussed Condition With Nursing Discharge Planning SNF Parris Turpin. INVASIVE CARDIOVASCULAR TECHNOLOGIST Jun 07, 2017 12:29
--- NOTE | 2017-06-07 12:29 | HHI.PR ---
Subjective Remarks Patient sitting up in bed. Denies any SOB. Chest discomfort noted on palpation only. Objective Vital Signs Date Time Temp Pulse Resp B/P (MAP) Pulse Ox O2 Delivery O2 Flow Rate FiO2 06/07/17 12:18 98.0 68 20 163/77 (105) 100 06/07/17 09:51 62 06/07/17 08:10 98.2 66 20 136/64 (88) 100 06/07/17 07:01 63 136/64 (88) 06/07/17 04:17 98.5 70 18 160/71 (100) 99 06/07/17 00:32 60 06/07/17 00:12 98.5 63 18 135/64 (87) 98 06/06/17 20:36 99.5 72 20 128/59 (82) 98 06/06/17 16:11 98.3 64 18 134/63 (86) 100 06/06/17 13:11 97.6 78 18 123/60 (81) 100 I/O 06/06/17 06/06/17 06/06/17 06/07/17 06/07/17 06/07/17 07:00 15:00 23:00 07:00 15:00 23:00 Output Total 850 ml Balance -850 ml Output Urine Total 850 ml # Voids 1 # Bowel Movements 0 Result Diagram: 06/07/1732906/07/17 033 Objective Remarks GENERAL: Alert not oriented. SKIN: Warm and dry. HEAD: Normocephalic. EYES: No scleral icterus. No injection or drainage. NECK: Supple, trachea midline. No JVD or lymphadenopathy. CARDIOVASCULAR: Regular rate and rhythm without murmurs, gallops, or rubs. RESPIRATORY: Breath sounds equal bilaterally. No accessory muscle use. GASTROINTESTINAL: Abdomen soft, non-tender, nondistended. MUSCULOSKELETAL: No cyanosis, or edema. BACK: Nontender without obvious deformity. No CVA tenderness. Medications and IVs Current Medications Medications (Trade) Dose Ordered Sig/Brendan Route Start Time Stop Time Status Last Admin Sodium Chloride 1,000 ml @ 75 mls/hr [id number] IV 06/06/17 14:50 06/06/17 20:15 (NS Flush) 2 ml UNSCH PRN IV FLUSH 06/06/17 15:00 (NS Flush) 2 ml BID IV FLUSH 06/06/17 21:00 06/06/17 20:23 (Tylenol) 650 mg Q4H PRN PO 06/06/17 15:00 (Zofran Inj) 4 mg Q6H PRN IVP 06/06/17 15:00 (Narcan Inj) 0.4 mg UNSCH PRN IV PUSH 06/06/17 15:00 (Milk Of Magnesia Liq) 30 ml Q12H PRN PO 06/06/17 15:00 (Dulcolax Supp) 10 mg DAILY PRN RECTAL 06/06/17 15:00 (Lactulose Liq) 30 ml DAILY PRN PO 06/06/17 15:00 (Eliquis) 2.5 mg BID PO 06/06/17 21:00 06/07/17 08:07 (Lipitor) 10 mg HS PO 06/06/17 21:00 06/06/17 20:22 (Aricept) 10 mg HS PO 06/06/17 21:00 06/06/17 20:22 (Imdur) 30 mg DAILY@0700 PO 06/07/17 07:00 06/07/17 06:33 (Lopressor) 25 mg BID PO 06/06/17 21:00 06/07/17 08:07 (Flomax) 0.4 mg HS PO 06/06/17 21:00 06/06/17 20:22 ([place] Thyroid) 30 mg DAILY PO 06/07/17 09:00 06/07/17 08:07 (Xanax) 0.5 mg Q8H PRN PO 06/06/17 18:00 06/07/17 12:16 Assessment and Plan Problem List: (1) CKD (chronic kidney disease) ICD Codes: N18.9 - Chronic kidney disease, unspecified (2) DEMENTIA IN OTH DISEASES CLASSD ELSWHR W BEHAVIORAL DISTURB ICD Codes: F02.81 - DEMENTIA IN OTH DISEASES CLASSD ELSWHR W BEHAVIORAL DISTURB (3) HLD (hyperlipidemia) ICD Codes: E78.5 - Hyperlipidemia, unspecified (4) HTN (hypertension) ICD Codes: I10 - Essential (primary) hypertension (5) Hypothyroidism ICD Codes: E03.9 - Hypothyroidism, unspecified (6) History of prostate cancer ICD Codes: Z85.46 - Personal history of malignant neoplasm of prostate (7) Syncopal episodes ICD Codes: R55 - Syncope and collapse Assessment and Plan 06/06/17 Syncopal event: Patient transfered from psychiatric unit to main hospital after helicat call. Patient was found to be unresponsive but rapidly returned to baseline. Patient put on telemetry. Cardiology consulted, labs ordered, trop obtained and negative. Discussed with cardiology. Patient paced. AMS: Patient is back to baseline mental status. Head CT with no acute findings. HLD; Continue statin CKD: Will monitor and avoid nephro toxins. Hypothyroidism: replacement continued Patient is DNR status 06/07/17 Syncopal event: No further episodes noted. Cardiology consulting. Pacemaker interrogation ordered. Has chest tenderness noted on palpation only. Trop negative. Tylenol for pain. AMS: Patient is confused. Has advanced and progress dementia. Head CT with no acute findings. Per nursing wandering in [place] will be moved closer to nurses station. EEG ordered CKD: IVF discontined Creat and BUN improved. Patient will need skilled nurse placement has become to difficult for to care for. I and the CIVIL ENGINEER IN TRAINING have both examined this patient and reviewed this note and I agree with these findings and plan of care. Rafa Andres DO Discussed Condition With Nursing Discharge Planning SNF [facility] Turpin. CIVIL ENGINEER IN TRAINING Jun 07, 2017 12:29
--- NOTE | 2017-06-07 12:29 | HHI.PR ---
Subjective Remarks Patient sitting up in bed. Denies any SOB. Chest discomfort noted on palpation only. Objective Vital Signs Date Time Temp Pulse Resp B/P (MAP) Pulse Ox O2 Delivery O2 Flow Rate FiO2 06/07/17 12:18 98.0 68 20 163/77 (105) 100 06/07/17 09:51 62 06/07/17 08:10 98.2 66 20 136/64 (88) 100 06/07/17 07:01 63 136/64 (88) 06/07/17 04:17 98.5 70 18 160/71 (100) 99 06/07/17 00:32 60 06/07/17 00:12 98.5 63 18 135/64 (87) 98 06/06/17 20:36 99.5 72 20 128/59 (82) 98 06/06/17 16:11 98.3 64 18 134/63 (86) 100 06/06/17 13:11 97.6 78 18 123/60 (81) 100 I/O 06/06/17 06/06/17 06/06/17 06/07/17 06/07/17 06/07/17 07:00 15:00 23:00 07:00 15:00 23:00 Output Total 850 ml Balance -850 ml Output Urine Total 850 ml # Voids 1 # Bowel Movements 0 Result Diagram: 06/07/1732906/07/17 033 Objective Remarks GENERAL: Alert not oriented. SKIN: Warm and dry. HEAD: Normocephalic. EYES: No scleral icterus. No injection or drainage. NECK: Supple, trachea midline. No JVD or lymphadenopathy. CARDIOVASCULAR: Regular rate and rhythm without murmurs, gallops, or rubs. RESPIRATORY: Breath sounds equal bilaterally. No accessory muscle use. GASTROINTESTINAL: Abdomen soft, non-tender, nondistended. MUSCULOSKELETAL: No cyanosis, or edema. BACK: Nontender without obvious deformity. No CVA tenderness. Medications and IVs Current Medications Medications (Trade) Dose Ordered Sig/Brendan Route Start Time Stop Time Status Last Admin Sodium Chloride 1,000 ml @ 75 mls/hr [id number] IV 06/06/17 14:50 06/06/17 20:15 (NS Flush) 2 ml UNSCH PRN IV FLUSH 06/06/17 15:00 (NS Flush) 2 ml BID IV FLUSH 06/06/17 21:00 06/06/17 20:23 (Tylenol) 650 mg Q4H PRN PO 06/06/17 15:00 (Zofran Inj) 4 mg Q6H PRN IVP 06/06/17 15:00 (Narcan Inj) 0.4 mg UNSCH PRN IV PUSH 06/06/17 15:00 (Milk Of Magnesia Liq) 30 ml Q12H PRN PO 06/06/17 15:00 (Dulcolax Supp) 10 mg DAILY PRN RECTAL 06/06/17 15:00 (Lactulose Liq) 30 ml DAILY PRN PO 06/06/17 15:00 (Eliquis) 2.5 mg BID PO 06/06/17 21:00 06/07/17 08:07 (Lipitor) 10 mg HS PO 06/06/17 21:00 06/06/17 20:22 (Aricept) 10 mg HS PO 06/06/17 21:00 06/06/17 20:22 (Imdur) 30 mg DAILY@0700 PO 06/07/17 07:00 06/07/17 06:33 (Lopressor) 25 mg BID PO 06/06/17 21:00 06/07/17 08:07 (Flomax) 0.4 mg HS PO 06/06/17 21:00 06/06/17 20:22 ([place] Thyroid) 30 mg DAILY PO 06/07/17 09:00 06/07/17 08:07 (Xanax) 0.5 mg Q8H PRN PO 06/06/17 18:00 06/07/17 12:16 Assessment and Plan Problem List: (1) CKD (chronic kidney disease) ICD Codes: N18.9 - Chronic kidney disease, unspecified (2) DEMENTIA IN OTH DISEASES CLASSD ELSWHR W BEHAVIORAL DISTURB ICD Codes: F02.81 - DEMENTIA IN OTH DISEASES CLASSD ELSWHR W BEHAVIORAL DISTURB (3) HLD (hyperlipidemia) ICD Codes: E78.5 - Hyperlipidemia, unspecified (4) HTN (hypertension) ICD Codes: I10 - Essential (primary) hypertension (5) Hypothyroidism ICD Codes: E03.9 - Hypothyroidism, unspecified (6) History of prostate cancer ICD Codes: Z85.46 - Personal history of malignant neoplasm of prostate (7) Syncopal episodes ICD Codes: R55 - Syncope and collapse Assessment and Plan 06/06/17 Syncopal event: Patient transfered from psychiatric unit to main hospital after helicat call. Patient was found to be unresponsive but rapidly returned to baseline. Patient put on telemetry. Cardiology consulted, labs ordered, trop obtained and negative. Discussed with cardiology. Patient paced. AMS: Patient is back to baseline mental status. Head CT with no acute findings. HLD; Continue statin CKD: Will monitor and avoid nephro toxins. Hypothyroidism: replacement continued Patient is DNR status 06/07/17 Syncopal event: No further episodes noted. Cardiology consulting. Pacemaker interrogation ordered. Has chest tenderness noted on palpation only. Trop negative. Tylenol for pain. AMS: Patient is confused. Has advanced and progress dementia. Head CT with no acute findings. Per nursing wandering in [place] will be moved closer to nurses station. EEG ordered CKD: IVF discontined Creat and BUN improved. Patient will need skilled nurse placement has become to difficult for to care for. I and the FOREST BIOMETRICS PROFESSOR have both examined this patient and reviewed this note and I agree with these findings and plan of care. Rafa Andres DO Discussed Condition With Nursing Discharge Planning SNF [facility] Turpni. FOREST BIOMETRICS PROFESSOR Jun 07, 2017 12:29
--- NOTE | 2017-06-07 14:05 | MB ---
cc: GIANFRANCO LUU M.D. DATE OF CONSULTATION: 06/07/2017 DATE OF : 1925, 89 years old. REASON FOR CONSULTATION: Change in mental status. Syncope. HISTORY OF PRESENT ILLNESS: This is a 89-year-old man who was transferred from the psychiatric unit for syncope, found unresponsive and HELICAT was called, he has a history of dementia, Navarro acted because he became aggressive with his and wanted to drive, agitated and was forcefully removed and brought to the hospital. PAST MEDICAL HISTORY: He has a past medical history of; 1. Hypertension 2. Hyperlipidemia 3. Pacemaker 4. chronic kidney disease 5. Atrial fibrillation 6. Prostate cancer. 7. History of stroke in the past. SOCIAL HISTORY Lives with his . There is no smoking or alcohol use. HOME MEDICATIONS: Please refer to the electronic medical record. PHYSICAL EXAMINATION: VITAL SIGNS: Temperature is 98.2, pulse 62, respiratory rate 20, blood pressure 136/64. NECK: The neck is supple. I do not appreciate any bruits. HEART: There is a systolic murmur. LUNGS: Appear clear. ABDOMEN: The abdomen is soft. No edema. NEUROLOGICALLY: He is awake and alert. He knows himself. He does not know where he is at. He mumbles about things that make no sense. He is not oriented otherwise. HEAD, EYES, EARS, NOSE, AND THROAT: His pupils reactive. His face is symmetrical. NEUROLOGIC: Motor dodge he seems to move everything intact. No lateralizing weakness. Gait is withheld. He is in a Landy-chair. LABORATORY FINDINGS: The labs are reviewed. Hemoglobin is 9.7. His chemistries creatinine 1.77, BUN of 45. There is GFR is 36, albumin 3.1. CT brain did not show anything acute but he did have apparently a an old high parietal occipital infarct. There is severe atrophy. IMPRESSION/PLAN: 1. Dementia. Continue his dementia medications. 2. Syncope. Defer to his cutting machine operator. But I will go ahead and get a electroencephalogram just for completion, make sure he did not have a seizure. At this point in time no other testing unless EEG is abnormal. 3. Maintain neuro checks on telemetry. Thank you MD Lilly Samuel /11:40 AM /1:52 PM
--- NOTE | 2017-06-07 16:27 | MG ---
cc: GIANFRANCO LUU M.D. Lab No: [id number] Date: Age: 89 Sex: M Race: ROOM: [facility]. With photic stimulation. Awake, drowsy, asleep study. CT shows old left parietooccipital infarct. A history of Navarro Act for agitation, aggressiveness with his , had a syncopal episode, history of dementia, prostate cancer, hypertension, pacemaker on Eliquis, Xanax, Imdur and thyroid medicine. DESCRIPTION OF THE RECORD: The patient has a background rhythm occasionally with higher theta 7 Hz symmetrical background. Some minor myogenic artifact. Some mild attenuation as he becomes drowsy. Photic stimulation does elicit a normal driving response. IMPRESSION: Mildly slow EEG may be due to somnolence, medicine effect versus dementia, but there is no evidence of any epileptic activity. MD DOUG Samuel/RORO /4:14 PM /4:21 PM
--- NOTE | 2017-06-07 16:27 | MG ---
cc: GIANFRANCO LUU M.D. Lab No: [id number] Date: Age: 89 Sex: M Race: ROOM: [facility]. With photic stimulation. Awake, drowsy, asleep study. CT shows old left parietooccipital infarct. A history of Navarro Act for agitation, aggressiveness with his , had a syncopal episode, history of dementia, prostate cancer, hypertension, pacemaker on Eliquis, Xanax, Imdur and thyroid medicine. DESCRIPTION OF THE RECORD: The patient has a background rhythm occasionally with higher theta 7 Hz symmetrical background. Some minor myogenic artifact. Some mild attenuation as he becomes drowsy. Photic stimulation does elicit a normal driving response. IMPRESSION: Mildly slow EEG may be due to somnolence, medicine effect versus dementia, but there is no evidence of any epileptic activity. MD DOUG Samuel/RORO /4:14 PM /4:21 PM
[2017-06-07] MEDS ORDERED: LORazepam 2 MG/ML VIAL IV PUSH PRN (17:00)
[2017-06-07] MEDS: TAMSULOSIN HCL 0.4 MG CAP PO SCH (22:00)
[2017-06-07] MEDS: DONEPEZIL HCL 5 MG TAB PO SCH (22:00)
[2017-06-07] MEDS: ATORVASTATIN 10 MG TAB PO SCH (22:00)
[2017-06-08 04:12] VITALS: BP 169/74; PULSE 68; RESP 18; TEMP 97; O2SAT 98
[2017-06-08] MEDS: ISOSORBIDE MONONITRATE 30 MG TAB PO SCH (06:21)
[2017-06-08 07:53] VITALS: BP 115/58; PULSE 67; RESP 18; TEMP 97.7; O2SAT 97
[2017-06-08 08:00] VITALS: PULSE 62
[2017-06-08] MEDS: SODIUM CHLORIDE 0.9% FLUSH 10 ML FLUSH IV FLUSH SCH ×2 (09:00→20:50)
[2017-06-08] MEDS: METOPROLOL TARTRATE 25 MG TAB PO SCH ×2 (09:10→20:49)
[2017-06-08] MEDS: APIXABAN 2.5 MG TABLET PO SCH ×2 (09:11→20:49)
[2017-06-08] MEDS: THYROID 30 MG TAB PO SCH (09:22)
[2017-06-08 12:04] VITALS: BP 124/57; PULSE 71; RESP 17; TEMP 97.9; O2SAT 99
--- NOTE | 2017-06-08 14:12 | HHI.PR ---
Subjective Remarks Patient resting comfortably in bed. Per nursing patient has been more cooperative. Objective Vital Signs Date Time Temp Pulse Resp B/P (MAP) Pulse Ox O2 Delivery O2 Flow Rate FiO2 06/08/17 12:04 97.9 71 17 124/57 (79) 99 06/08/17 07:53 97.7 67 18 115/58 (77) 97 06/08/17 04:12 97.0 68 18 169/74 (105) 98 06/07/17 23:59 97.7 65 18 179/79 (112) 100 06/07/17 20:02 61 06/07/17 20:00 96.0 60 18 162/70 (100) 100 I/O 06/07/17 06/07/17 06/07/17 06/08/17 06/08/17 06/08/17 07:00 15:00 23:00 07:00 15:00 23:00 Intake Total 1200 ml Output Total 850 ml 350 ml 300 ml Balance -850 ml -350 ml -300 ml 1200 ml Intake Oral 1200 ml Output Urine Total 850 ml 350 ml 300 ml # Voids 4 2 # Bowel Movements 2 Result Diagram: 06/07/1732906/07/17329 Objective Remarks GENERAL: Alert not oriented. SKIN: Warm and dry. HEAD: Normocephalic. EYES: No scleral icterus. No injection or drainage. NECK: Supple, trachea midline. No JVD or lymphadenopathy. CARDIOVASCULAR: Regular rate and rhythm without murmurs, gallops, or rubs. RESPIRATORY: Breath sounds equal bilaterally. No accessory muscle use. GASTROINTESTINAL: Abdomen soft, non-tender, nondistended. MUSCULOSKELETAL: No cyanosis, or edema. BACK: Nontender without obvious deformity. No CVA tenderness. Medications and IVs Current Medications Medications (Trade) Dose Ordered Sig/Brendan Route Start Time Stop Time Status Last Admin (NS Flush) 2 ml UNSCH PRN IV FLUSH 06/06/17 15:00 (NS Flush) 2 ml BID IV FLUSH 06/06/17 21:00 06/08/17 09:00 (Tylenol) 650 mg Q4H PRN PO 06/06/17 15:00 (Zofran Inj) 4 mg Q6H PRN IVP 06/06/17 15:00 (Narcan Inj) 0.4 mg UNSCH PRN IV PUSH 06/06/17 15:00 (Milk Of Magnesia Liq) 30 ml Q12H PRN PO 06/06/17 15:00 (Dulcolax Supp) 10 mg DAILY PRN RECTAL 06/06/17 15:00 (Lactulose Liq) 30 ml DAILY PRN PO 06/06/17 15:00 (Eliquis) 2.5 mg BID PO 06/06/17 21:00 06/08/17 09:11 (Lipitor) 10 mg HS PO 06/06/17 21:00 06/07/17 22:00 (Aricept) 10 mg HS PO 06/06/17 21:00 06/07/17 22:00 (Imdur) 30 mg DAILY@0700 PO 06/07/17 07:00 06/08/17 06:21 (Lopressor) 25 mg BID PO 06/06/17 21:00 06/08/17 09:10 (Flomax) 0.4 mg HS PO 06/06/17 21:00 06/07/17 22:00 ([place] Thyroid) 30 mg DAILY PO 06/07/17 09:00 06/08/17 09:22 (Xanax) 0.5 mg Q8H PRN PO 06/06/17 18:00 06/07/17 12:16 (Ativan Inj) 1 mg Q6H PRN IV PUSH 06/07/17 17:00 06/07/17 17:25 Assessment and Plan Problem List: (1) CKD (chronic kidney disease) ICD Codes: N18.9 - Chronic kidney disease, unspecified (2) DEMENTIA IN OTH DISEASES CLASSD ELSWHR W BEHAVIORAL DISTURB ICD Codes: F02.81 - DEMENTIA IN OTH DISEASES CLASSD ELSWHR W BEHAVIORAL DISTURB (3) HLD (hyperlipidemia) ICD Codes: E78.5 - Hyperlipidemia, unspecified (4) HTN (hypertension) ICD Codes: I10 - Essential (primary) hypertension (5) Hypothyroidism ICD Codes: E03.9 - Hypothyroidism, unspecified (6) History of prostate cancer ICD Codes: Z85.46 - Personal history of malignant neoplasm of prostate (7) Syncopal episodes ICD Codes: R55 - Syncope and collapse Assessment and Plan 06/06/17 Syncopal event: Patient transfered from psychiatric unit to main hospital after helicat call. Patient was found to be unresponsive but rapidly returned to baseline. Patient put on telemetry. Cardiology consulted, labs ordered, trop obtained and negative. Discussed with cardiology. Patient paced. AMS: Patient is back to baseline mental status. Head CT with no acute findings. HLD; Continue statin CKD: Will monitor and avoid nephro toxins. Hypothyroidism: replacement continued Patient is DNR status 06/07/17 Syncopal event: No further episodes noted. Cardiology consulting. Pacemaker interrogation ordered. Has chest tenderness noted on palpation only. Trop negative. Tylenol for pain. AMS: Patient is confused. Has advanced and progress dementia. Head CT with no acute findings. Per nursing wandering in [place] will be moved closer to nurses station. EEG ordered CKD: IVF discontined Creat and BUN improved. Patient will need skilled nurse placement has become to difficult for to care for. 06/08/17 Syncopal event: No episodes noted. Cardiology consulted and managing AMS: Patient is pleasantly confused. Had sitter over night and ativan added IV. Will convert to oral. Risperdal bid. Mildly slow EEG may be due to somnolence, medicine effect versus dementia, but there is no evidence of any epileptic activity. Head CT with no acute findings. CKD: Monitoring. Avoid nephro toxins. I and the PUBLIC HEALTH REGISTRAR have both examined this patient and reviewed this note and I agree with these findings and plan of care. Rafa Andres DO Discussed Condition With nursing Parris Turpin PUBLIC HEALTH REGISTRAR Jun 08, 2017 14:12
[2017-06-08 16:16] VITALS: BP 139/61; PULSE 65; RESP 18; TEMP 97.9; O2SAT 97
[2017-06-08 20:09] VITALS: BP 172/75; PULSE 62; RESP 20; TEMP 97.9; O2SAT 93
[2017-06-08] MEDS: ATORVASTATIN 10 MG TAB PO SCH (20:49)
[2017-06-08] MEDS: DONEPEZIL HCL 5 MG TAB PO SCH (20:50)
[2017-06-08] MEDS: TAMSULOSIN HCL 0.4 MG CAP PO SCH (20:50)
--- NOTE | 2017-06-08 21:01 | EKG ---
Date Performed: 06/07/2017 Time Performed: 04:34:10 PTAGE: 89 years EKG: Demand atrial pacing. Leftward axis Right bundle branch block Lateral ST-T changes are nons pecific Abnormal ECG PREVIOUS TRACING : 06/06/2017 21.32 DOCTOR: Fatoumata Peck Interpretating Date/Time 06/08/2017 20:54:07
--- NOTE | 2017-06-08 21:06 | EKG ---
Date Performed: 06/06/2017 Time Performed: 21:32:48 PTAGE: 89 years EKG: ELECTRONIC ATRIAL PACEMAKER RIGHT BUNDLE BRANCH BLOCK POSSIBLE ANTERIOR MYOCARDIAL INFARCTI ON , PROBABLY OLD ABNORMAL ECG PREVIOUS TRACING : 06/06/2017 15.56 DOCTOR: Fatoumata Peck Interpretating Date/Time 06/08/2017 20:56:57
--- NOTE | 2017-06-08 21:11 | EKG ---
Date Performed: 06/06/2017 Time Performed: 15:56:08 PTAGE: 89 years EKG: ELECTRONIC ATRIAL PACEMAKER MARKED LEFT AXIS DEVIATION RIGHT BUNDLE BRANCH BLOCK POSSIBLE A NTERIOR MYOCARDIAL INFARCTION , PROBABLY OLD ABNORMAL ECG PREVIOUS TRACING : 06/06/2017 12.07 DOCTOR: Fatoumata Peck Interpretating Date/Time 06/08/2017 21:01:56
[2017-06-09] VITALS (7 sets, daily range): BP systolic 108–178; BP diastolic 55–75; PULSE 60–68; RESP 17–20; TEMP 97.4–98.1; O2SAT 96–99
[2017-06-09] MEDS: ISOSORBIDE MONONITRATE 30 MG TAB PO SCH (06:39)
--- NOTE | 2017-06-09 08:39 | HHI.PR ---
Subjective Remarks Presented after syncopal event in Psych Objective Vital Signs Date Time Temp Pulse Resp B/P (MAP) Pulse Ox O2 Delivery O2 Flow Rate FiO2 06/09/17 08:05 97.5 65 18 128/60 (82) 99 06/09/17 04:39 97.4 60 20 142/63 (89) 99 06/09/17 00:38 97.6 63 20 178/75 (109) 96 06/08/17 20:09 97.9 62 20 172/75 (107) 93 06/08/17 16:16 97.9 65 18 139/61 (87) 97 06/08/17 12:04 97.9 71 17 124/57 (79) 99 I/O 06/08/17 06/08/17 06/08/17 06/09/17 06/09/17 06/09/17 07:00 15:00 23:00 07:00 15:00 23:00 Intake Total 1200 ml Output Total 300 ml Balance -300 ml 1200 ml Intake Oral 1200 ml Output Urine Total 300 ml # Voids 3 1 2 # Bowel Movements 2 Result Diagram: 06/07/1732906/07/17329 Objective Remarks HEENT - AT/NC; Resp - CTA; CV - tender to palpation over pacer in right anterior chest wall without ecchymosis of crepitus; Abd - Soft nontender with active BS; Neuro at baseline; MS - Without edema Medications and IVs Current Medications Medications (Trade) Dose Ordered Sig/Berndan Route Start Time Stop Time Status Last Admin (NS Flush) 2 ml UNSCH PRN IV FLUSH 06/06/17 15:00 (NS Flush) 2 ml BID IV FLUSH 06/06/17 21:00 06/08/17 20:50 (Tylenol) 650 mg Q4H PRN PO 06/06/17 15:00 (Zofran Inj) 4 mg Q6H PRN IVP 06/06/17 15:00 (Narcan Inj) 0.4 mg UNSCH PRN IV PUSH 06/06/17 15:00 (Milk Of Magnesia Liq) 30 ml Q12H PRN PO 06/06/17 15:00 (Dulcolax Supp) 10 mg DAILY PRN RECTAL 06/06/17 15:00 (Lactulose Liq) 30 ml DAILY PRN PO 06/06/17 15:00 (Eliquis) 2.5 mg BID PO 06/06/17 21:00 06/08/17 20:49 (Lipitor) 10 mg HS PO 06/06/17 21:00 06/08/17 20:49 (Aricept) 10 mg HS PO 06/06/17 21:00 06/08/17 20:50 (Imdur) 30 mg DAILY@0700 PO 06/07/17 07:00 06/09/17 06:39 (Lopressor) 25 mg BID PO 06/06/17 21:00 06/08/17 20:49 (Flomax) 0.4 mg HS PO 06/06/17 21:00 06/08/17 20:50 ([place] Thyroid) 30 mg DAILY PO 06/07/17 09:00 06/08/17 09:22 (Xanax) 0.5 mg Q8H PRN PO 06/06/17 18:00 06/07/17 12:16 Assessment and Plan Problem List: (1) Alzheimer disease ICD Codes: G30.9 - Alzheimer's disease, unspecified Status: Chronic (2) Syncopal episodes ICD Codes: R55 - Syncope and collapse Status: Acute Plan: F/U Cards recommendations (3) CKD (chronic kidney disease) ICD Codes: N18.9 - Chronic kidney disease, unspecified Status: Chronic Plan: avoid nephrotoxic agents and monitor Assessment and Plan Syncopal event: Patient transfered from psychiatric unit to [facility] after helicat call. Patient was found to be unresponsive but rapidly returned to baseline. Patient put on telemetry. Cardiology consulted, labs ordered, trop obtained and negative. Discussed with cardiology. Patient paced. AMS: Patient is back to baseline mental status. Head CT with no acute findings. HLD; Continue statin CKD: Will monitor and avoid nephro toxins. Hypothyroidism: replacement continued Patient is DNR status 06/07/17 Syncopal event: No further episodes noted. Cardiology consulting. Pacemaker interrogation ordered. Has chest tenderness noted on palpation only. Trop negative. Tylenol for pain. AMS: Patient is confused. Has advanced and progress dementia. Head CT with no acute findings. Per nursing wandering in [place] will be moved closer to nurses station. EEG ordered CKD: IVF discontined Creat and BUN improved. Patient will need skilled nurse placement has become to difficult for to care for. 06/08/17 Syncopal event: No episodes noted. Cardiology consulted and managing AMS: Patient is pleasantly confused. Had sitter over night and ativan added IV. Will convert to oral. Risperdal bid. Mildly slow EEG may be due to somnolence, medicine effect versus dementia, but there is no evidence of any epileptic activity. Head CT with no acute findings. CKD: Monitoring. Avoid nephro toxins. 06/09/17 S/P syncopal event. Cards following. AMS at baseline and patients only C/O is discomfort over his pacer, but exam is normal. CKD - Cont to monitor and avoid nephrotoxic agents Discussed Condition With Patient Discharge Planning SNF placement Problem Qualifiers (1) Alzheimer disease: (2) Syncopal episodes: (3) CKD (chronic kidney disease): Qualified Codes: N18.9 - Chronic kidney disease, unspecified Jem Goodrich Jun 09, 2017 08:39
[2017-06-09] MEDS: SODIUM CHLORIDE 0.9% FLUSH 10 ML FLUSH IV FLUSH SCH ×2 (09:00→21:00)
[2017-06-09] MEDS: METOPROLOL TARTRATE 25 MG TAB PO SCH ×2 (09:10→21:12)
[2017-06-09] MEDS: THYROID 30 MG TAB PO SCH (09:10)
[2017-06-09] MEDS: APIXABAN 2.5 MG TABLET PO SCH ×2 (09:10→21:13)
--- NOTE | 2017-06-09 09:29 | MB ---
cc: FRANCA YU MD DATE OF CONSULTATION 06/06/17 HISTORY OF PRESENT ILLNESS Mr. Tilley is an 89-year-old male who was [place] [employer] because he was aggressive with his and wanted to . He was brought by police to the psychiatric unit. He was found to be unresponsive and [facility] called. He was transferred to the medical floor. He complains of right anterior chest discomfort which is reproducible chest with chest palpation and is musculoskeletal origin. He does not have any significant dyspnea. He denies any dizziness, lightheadedness or palpitations. PAST MEDICAL HISTORY Positive for hypothyroidism, hypertension, dyslipidemia, pacemaker placement, chronic kidney disease, atrial fibrillation, CVA and prostate cancer. ALLERGIES None. MEDICATIONS 1. Eliquis 2.5 milligrams twice a day. 2. Donepezil. 3. . 4. Atorvastatin 10 milligrams daily. 5. Isosorbide. 6. Metoprolol. 7. Lorazepam. 8. . SOCIAL HISTORY The patient does not smoke. He does not drink alcohol. He is accompanied by his . FAMILY HISTORY Positive for heart disease. REVIEW OF SYSTEMS The review of systems is otherwise negative. PHYSICAL EXAMINATION VITAL SIGNS: Blood pressure 134/63, pulse 64 and 64 and regular. HEENT: Negative. 2+ carotid upstrokes. No bruits. LUNGS: Clear. HEART: Regular with systolic murmur. No gallop. ABDOMEN: Soft. No bruits. CHEST: The pacemaker site is stable. The right anterior chest is tender with palpation and motion. EXTREMITIES: Without edema. 2+ distal pulses. NEUROLOGIC: Exam grossly . CARDIOLOGY STUDIES EKG was reviewed and showed atrial pacing left axis, right bundle-branch block with STT changes. LABORATORY DATA Hemoglobin 10.0, potassium 5.1, creatinine 2.0. Troponin less than 0.02. DIAGNOSIS 1. Syncope. 2. Noncardiac chest pain (musculoskeletal). 3. Dementia. 4. History of pacemaker placement. 5. Paroxysmal atrial fibrillation. 6. Chronic kidney disease. 7. Hypertension. 8. Dyslipidemia. 9. Hypothyroidism. 10. History of CVA. DISPOSITION Mr. Tilley chest pain which is likely of noncardiac origin which is likely of musculoskeletal origin. the syncopal episode is unclear etiology. He will be monitored on telemetry. If he remains stable he can be discharged home within the next 20-40 hours and will be scheduled follow up with Dr. Tse, his primary geotechnical department manager, in his office after discharge. The patient's code status remained DNR. Franca Yu MD OAdriana/EO /8:22 PM /9:15 AM
--- NOTE | 2017-06-09 16:01 | PD.CARD.PN ---
Subjective Subjective Remarks No SOB, CP improving, mildly confused Objective Medications Current Medications Medications (Trade) Dose Ordered Sig/Brendan Route Start Time Stop Time Status Last Admin (NS Flush) 2 ml UNSCH PRN IV FLUSH 06/06/17 15:00 (NS Flush) 2 ml BID IV FLUSH 06/06/17 21:00 06/09/17 09:00 (Tylenol) 650 mg Q4H PRN PO 06/06/17 15:00 (Zofran Inj) 4 mg Q6H PRN IVP 06/06/17 15:00 (Narcan Inj) 0.4 mg UNSCH PRN IV PUSH 06/06/17 15:00 (Milk Of Magnesia Liq) 30 ml Q12H PRN PO 06/06/17 15:00 (Dulcolax Supp) 10 mg DAILY PRN RECTAL 06/06/17 15:00 (Lactulose Liq) 30 ml DAILY PRN PO 06/06/17 15:00 (Eliquis) 2.5 mg BID PO 06/06/17 21:00 06/09/17 09:10 (Lipitor) 10 mg HS PO 06/06/17 21:00 06/08/17 20:49 (Aricept) 10 mg HS PO 06/06/17 21:00 06/08/17 20:50 (Imdur) 30 mg DAILY@0700 PO 06/07/17 07:00 06/09/17 06:39 (Lopressor) 25 mg BID PO 06/06/17 21:00 06/09/17 09:10 (Flomax) 0.4 mg HS PO 06/06/17 21:00 06/08/17 20:50 ([place] Thyroid) 30 mg DAILY PO 06/07/17 09:00 06/09/17 09:10 (Xanax) 0.5 mg Q8H PRN PO 06/06/17 18:00 06/07/17 12:16 Vital Signs / I&O Vital Signs Date Time Temp Pulse Resp B/P (MAP) Pulse Ox O2 Delivery O2 Flow Rate FiO2 06/09/17 12:18 97.4 63 17 112/58 (76) 99 06/09/17 08:05 97.5 65 18 128/60 (82) 99 06/09/17 08:00 61 06/09/17 04:39 97.4 60 20 142/63 (89) 99 06/09/17 00:38 97.6 63 20 178/75 (109) 96 06/08/17 20:09 97.9 62 20 172/75 (107) 93 06/08/17 16:16 97.9 65 18 139/61 (87) 97 I/O 06/08/17 06/08/17 06/08/17 06/09/17 06/09/17 06/09/17 07:00 15:00 23:00 07:00 15:00 23:00 Intake Total 1200 ml 840 ml Output Total 300 ml Balance -300 ml 1200 ml 840 ml Intake Oral 1200 ml 840 ml Output Urine Total 300 ml # Voids 3 1 2 2 # Bowel Movements 2 Physical Exam GENERAL: In NAD SKIN: Warm and dry. HEAD: Normocephalic. EYES: No scleral icterus. No injection or drainage. NECK: Supple, trachea midline. No JVD or lymphadenopathy. CARDIOVASCULAR: Regular rate and rhythm without murmurs, gallops, or rubs, CP reproducible with palpation. RESPIRATORY: Breath sounds equal bilaterally. No accessory muscle use. GASTROINTESTINAL: Abdomen soft, non-tender, nondistended. MUSCULOSKELETAL: No cyanosis, or edema. BACK: Nontender without obvious deformity. No CVA tenderness. Assessment and Plan Problem List: (1) Chest pain ICD Codes: R07.9 - Chest pain, unspecified (2) Syncopal episodes ICD Codes: R55 - Syncope and collapse Status: Acute (3) HTN (hypertension) ICD Codes: I10 - Essential (primary) hypertension (4) HLD (hyperlipidemia) ICD Codes: E78.5 - Hyperlipidemia, unspecified (5) DEMENTIA IN OTH DISEASES CLASSD ELSWHR W BEHAVIORAL DISTURB ICD Codes: F02.81 - DEMENTIA IN OTH DISEASES CLASSD ELSWHR W BEHAVIORAL DISTURB Assessment and Plan CP improving, likely of musculoskeletal origin. No recent dizziness or syncope. Increase activity. Mild dementia. DNR status. Problem Qualifiers (1) Syncopal episodes: Franca Borden MD Jun 09, 2017 16:01
[2017-06-09] MEDS: ALPRAZolam 0.5 MG TAB PO PRN (18:29)
[2017-06-09] MEDS: DONEPEZIL HCL 5 MG TAB PO SCH (21:12)
[2017-06-09] MEDS: TAMSULOSIN HCL 0.4 MG CAP PO SCH (21:13)
[2017-06-09] MEDS: ATORVASTATIN 10 MG TAB PO SCH (21:13)
[2017-06-10 00:12] VITALS: BP 126/59; PULSE 65; RESP 20; TEMP 97.6; O2SAT 98
[2017-06-10 04:35] VITALS: BP 172/74; PULSE 81; RESP 20; TEMP 97.2; O2SAT 97
[2017-06-10] MEDS: ISOSORBIDE MONONITRATE 30 MG TAB PO SCH (06:08)
[2017-06-10 07:38] VITALS: BP 123/58; PULSE 73; RESP 18; TEMP 97.1; O2SAT 100
[2017-06-10 08:00] VITALS: PULSE 68
[2017-06-10] MEDS: THYROID 30 MG TAB PO SCH (08:22)
[2017-06-10] MEDS: METOPROLOL TARTRATE 25 MG TAB PO SCH (08:22)
[2017-06-10] MEDS: APIXABAN 2.5 MG TABLET PO SCH (08:22)
[2017-06-10] MEDS: SODIUM CHLORIDE 0.9% FLUSH 10 ML FLUSH IV FLUSH SCH (08:30)
[2017-06-10 11:59] VITALS: BP 118/59; PULSE 67; RESP 18; TEMP 97.4; O2SAT 99
[2017-06-10] MEDS ORDERED: APIX2.5T PO (12:54)
--- NOTE | 2017-06-10 13:01 | HHI.DS ---
Discharge Summary Admission Date Jun 06, 2017 at 13:05 Discharge Date: Jun 10, 2017 Admitting Diagnosis (1) DEMENTIA IN OTH DISEASES CLASSD ELSWHR W BEHAVIORAL DISTURB ICD Codes: F02.81 - DEMENTIA IN OTH DISEASES CLASSD ELSWHR W BEHAVIORAL DISTURB Brief History The patient is 89 years old who was transferred from psychiatric unit to [facility] for a syncopal event. He was found unresponsive and a [facility] was called. He has a history of senile dementia. He was a pardo act because he became agressive with his and wanting to drive. He became agitated when he was forcibly removed from his house and brought to the hospital. He has a past medical history of hypothyroidism, HTN, HLD, pacemaker, CKD, AFIB, prostate cancer, and CVA. CBC/BMP: 06/07/17 0330 06/07/17 033 PE at Discharge GENERAL: Alert not oriented. SKIN: Warm and dry. HEAD: Normocephalic. EYES: No scleral icterus. No injection or drainage. NECK: Supple, trachea midline. No JVD or lymphadenopathy. CARDIOVASCULAR: Regular rate and rhythm without murmurs, gallops, or rubs. RESPIRATORY: Breath sounds equal bilaterally. No accessory muscle use. GASTROINTESTINAL: Abdomen soft, non-tender, nondistended. MUSCULOSKELETAL: No cyanosis, or edema. BACK: Nontender without obvious deformity. No CVA tenderness. Hospital Course The patient is 89 years old who was transferred from psychiatric unit to [facility] for a syncopal event. He was found unresponsive and a [facility] was called. He has a history of senile dementia. He was a pardo act because he became agressive with his and wanting to drive. He became agitated when he was forcibly removed from his house and brought to the hospital. He has a past medical history of hypothyroidism, HTN, HLD, pacemaker, CKD, AFIB, prostate cancer, and CVA. Patient has progressing dementia and needs agressive medication management to control behavior. No syncopal event noted during his stay in acute setting followed by Dr. Borden musculoskeletal discomfort in chest region. Trop have remained negative. Has pacemaker. EEG with no acute findings/. Was also followed by neurology during his stay. Discharged to SNF. Pt Condition on Discharge: Good Discharge Disposition: Discharge to SNF Discharge Instructions DIET: Follow Instructions for: As Tolerated, No Restrictions Activities you can perform: Regular-No Restrictions Follow up Referrals: PCP Follow-up @ [facility] will be followed by Dr. Andres New Medications: Apixaban (Eliquis) 2.5 Mg Tab 2.5 MG PO BID for Blood Clot Prevention for 30 Days, #60 TAB Continued Medications: Atorvastatin (Atorvastatin) 10 Mg Tab 10 MG PO HS for Cholesterol Management, #30 TAB 0 Refills Donepezil (Donepezil) 10 Mg Tab 10 MG PO HS for Dementia, #30 TAB 0 Refills Isosorbide Mononitrate ER (Isosorbide Mononitrate ER) 30 Mg Bill 30 MG PO DAILY for Prevent Chest Pain, #30 TAB 0 Refills Lorazepam (Lorazepam) 0.5 Mg Tab Unknown Dose PO Q8H, TAB 0 Refills Metoprolol Tartrate (Metoprolol Tartrate) 25 Mg Tab 25 MG PO BID, #60 TAB 0 Refills Tamsulosin (Tamsulosin) 0.4 Mg Cap 0.4 MG PO HS for Manage Prostate Problems, #30 CAP 0 Refills Thyroid ([place] Thyroid) 30 Mg Tab 30 MG PO DAILY for Thyroid Supplement, #30 TAB 0 Refills Parris Turpin Jun 10, 2017 13:01
--- NOTE | 2017-06-10 13:45 | HHI.PYPN ---
Subjective Remarks The patient was seen today for psychiatric reevaluation, patient is calm, cooperative, pleasantly demented. Patient reports that he feels very good, ready to go home, in a good spirit. Patient reports that he has been in the hospital now for a long time, and he just want to go back home with his , to make his yard and work in his house. Patient does not know the reason of his hospitalization, oriented in person, place, but disoriented in time. Patient denies suicidal and homicidal ideation, he denies visual and auditory hallucinations. No Episodes of agitation or aggressive behaviors have been reported since the patient was discharged from psychiatry. Review of Systems Except as stated in HPI: all other systems reviewed are Neg Mental Status Examination Appearance: Appropriate Consciousness: Alert Orientation: Person, Place Motor Activity: Normal gait Speech: Unremarkable Language: Adequate Fund of Knowledge: Adequate Attention and Concentration: Adequate Memory: Impaired Mood: Appropriate Affect: Appropriate Thought Process & Associations: Intact Thought Content: Appropriate Hallucination Type: None Delusion Type: None Suicidal Ideation: No Suicidal Plan: No Suicidal Intention: No Homicidal Ideation: No Homicidal Plan: No Homicidal Intention: No Insight: Adequate Judgment: Adequate Results Vitals/IOs Vital Signs Date Time Temp Pulse Resp B/P (MAP) Pulse Ox O2 Delivery O2 Flow Rate FiO2 06/10/17 11:59 97.4 67 18 118/59 (78) 99 Assessment & Plan Problem List: (1) Alzheimer disease ICD Codes: G30.9 - Alzheimer's disease, unspecified Status: Chronic Assessment & Plan: on psychiatric evaluation today the patient does not present any neuropsychiatric symptoms such as psychosis, agitation or aggressive behavior, depression, josh, anxiety that requires an immediate psychiatric intervention or psychiatric hospitalization. Continue current psychotropic regimen. Patient is psychiatrically cleared to continue medical treatment and being discharged back home. Extensive support, motivation and psychoeducation provided. Assessment & Plan Estimated LOS: days Justification for Cont. Inpt. patient does not meet criteria for psychiatric admission at this moment. Problem Qualifiers (1) Alzheimer disease: Adriel Rodriguez MD Jun 10, 2017 13:45
[2017-06-10 16:03] VITALS: BP 141/65; PULSE 64; RESP 18; TEMP 98.2; O2SAT 100
--- NOTE | 2017-06-10 16:07 | PD.CARD.PN ---
Subjective Subjective Remarks No SOB, mildly confused, still with sharp CP reproducible with palpation ( musculoskeletal) Objective Medications Current Medications Medications (Trade) Dose Ordered Sig/Brendan Route Start Time Stop Time Status Last Admin (NS Flush) 2 ml UNSCH PRN IV FLUSH 06/06/17 15:00 (NS Flush) 2 ml BID IV FLUSH 06/06/17 21:00 06/10/17 08:30 (Tylenol) 650 mg Q4H PRN PO 06/06/17 15:00 (Zofran Inj) 4 mg Q6H PRN IVP 06/06/17 15:00 (Narcan Inj) 0.4 mg UNSCH PRN IV PUSH 06/06/17 15:00 (Milk Of Magnesia Liq) 30 ml Q12H PRN PO 06/06/17 15:00 (Dulcolax Supp) 10 mg DAILY PRN RECTAL 06/06/17 15:00 (Lactulose Liq) 30 ml DAILY PRN PO 06/06/17 15:00 (Eliquis) 2.5 mg BID PO 06/06/17 21:00 06/10/17 08:22 (Lipitor) 10 mg HS PO 06/06/17 21:00 06/09/17 21:13 (Aricept) 10 mg HS PO 06/06/17 21:00 06/09/17 21:12 (Imdur) 30 mg DAILY@0700 PO 06/07/17 07:00 06/10/17 06:08 (Lopressor) 25 mg BID PO 06/06/17 21:00 06/10/17 08:22 (Flomax) 0.4 mg HS PO 06/06/17 21:00 06/09/17 21:13 ([place] Thyroid) 30 mg DAILY PO 06/07/17 09:00 06/10/17 08:22 (Xanax) 0.5 mg Q8H PRN PO 06/06/17 18:00 06/09/17 18:29 Vital Signs / I&O Vital Signs Date Time Temp Pulse Resp B/P (MAP) Pulse Ox O2 Delivery O2 Flow Rate FiO2 06/10/17 16:03 98.2 64 18 141/65 (90) 100 06/10/17 11:59 97.4 67 18 118/59 (78) 99 06/10/17 08:00 68 06/10/17 07:38 97.1 73 18 123/58 (79) 100 06/10/17 04:35 97.2 81 20 172/74 (106) 97 06/10/17 00:12 97.6 65 20 126/59 (81) 98 06/09/17 20:27 97.4 67 20 132/59 (83) 99 I/O 06/09/17 06/09/17 06/09/17 06/10/17 06/10/17 06/10/17 07:00 15:00 23:00 07:00 15:00 23:00 Intake Total 840 ml 840 ml Balance 840 ml 840 ml Intake Oral 840 ml 840 ml # Voids 2 2 2 2 # Bowel Movements 1 1 Physical Exam GENERAL: In NAD SKIN: Warm and dry. HEAD: Normocephalic. EYES: No scleral icterus. No injection or drainage. NECK: Supple, trachea midline. No JVD or lymphadenopathy. CARDIOVASCULAR: Regular rate and rhythm without murmurs, gallops, or rubs, CP reproducible with palpation. RESPIRATORY: Breath sounds equal bilaterally. No accessory muscle use. GASTROINTESTINAL: Abdomen soft, non-tender, nondistended. MUSCULOSKELETAL: No cyanosis, or edema. Assessment and Plan Problem List: (1) Chest pain ICD Codes: R07.9 - Chest pain, unspecified (2) Syncopal episodes ICD Codes: R55 - Syncope and collapse Status: Acute (3) HTN (hypertension) ICD Codes: I10 - Essential (primary) hypertension (4) HLD (hyperlipidemia) ICD Codes: E78.5 - Hyperlipidemia, unspecified (5) DEMENTIA IN OTH DISEASES CLASSD ELSWHR W BEHAVIORAL DISTURB ICD Codes: F02.81 - DEMENTIA IN OTH DISEASES CLASSD ELSWHR W BEHAVIORAL DISTURB Assessment and Plan No new cardiac issues. CP is of musculoskeletal origin. No recent dizziness or syncope. Increase activity. Confused, has mild dementia. DNR status. Problem Qualifiers (1) Syncopal episodes: Franca Borden MD Jun 10, 2017 16:07
== END 2017-06-10 16:19 | DRG 312 ==
LOC: N05A 13:05 → N05B 06-07 14:46
PROVIDERS: ADMIT Family Medicine; ATTEND Family Medicine
DX: R55 Syncope and collapse (principal); I48.0 Paroxysmal atrial fibrillation; F02.81 Dementia in other diseases classified elsewhere, unspecified severity, with behavioral disturbance; G30.9 Alzheimer's disease, unspecified; I12.9 Hypertensive chronic kidney disease with stage 1 through stage 4 chronic kidney disease, or unspecified chronic kidney disease; E03.9 Hypothyroidism, unspecified; E78.5 Hyperlipidemia, unspecified; R07.89 Other chest pain; N18.9 Chronic kidney disease, unspecified; R41.82 Altered mental status, unspecified; Z86.73 Personal history of transient ischemic attack (TIA), and cerebral infarction without residual deficits; Z85.46 Personal history of malignant neoplasm of prostate; Z95.0 Presence of cardiac pacemaker; Z66 Do not resuscitate
CPT/HCPCS: 80053; 83735; 84484; 85025; 93005; 95819; J2060